=== PATIENT | male | born 1960 | race Caucasian/White ===

== ENCOUNTER 2023-10-15 22:14 | Outpatient (CLI) | payer OTHER, SELFPAY | END 2023-10-15 22:15 | disposition home or self-care (01) | LOC: AMB 10-19 19:45 | PROVIDERS: Visit Provider Family Medicine | DX: R53.1 Weakness (principal); F10.129 Alcohol abuse with intoxication, unspecified | CPT/HCPCS: A0998 ==

== ENCOUNTER 2024-07-01 23:05 | Outpatient (CLI) | payer MEDICAID, SELFPAY | END 2024-07-01 23:06 | disposition home or self-care (01) | LOC: AMB 07-04 09:44 | PROVIDERS: Visit Provider Internal Medicine | DX: R53.1 Weakness (principal) | CPT/HCPCS: A0998 ==

== ENCOUNTER 2024-07-05 03:00 | Outpatient (CLI) | payer MEDICAID, SELFPAY | END 2024-07-05 03:01 | disposition home or self-care (01) | LOC: AMB 07-07 08:14 | PROVIDERS: Visit Provider Family Medicine | DX: R53.1 Weakness (principal) ==

== ENCOUNTER 2024-10-17 19:28 | Outpatient (CLI) | payer OTHER, SELFPAY | END 2024-10-17 19:29 | disposition home or self-care (01) | PROVIDERS: Visit Provider Emergency Medicine | DX: S09.90XA Unspecified injury of head, initial encounter (principal); W07.XXXA Fall from chair, initial encounter; Y92.039 Unspecified place in apartment as the place of occurrence of the external cause | CPT/HCPCS: A0425; A0427 ==

== ENCOUNTER 2024-10-17 19:49 | Emergency (ER) | payer OTHER, SELFPAY ==
[2024-10-17] VITALS (19 sets, daily range): BP systolic 91–136; BP diastolic 51–79; PULSE 72–105; RESP 12–26; TEMP 35.1; O2SAT 90–95; BMI 40.7
--- NOTE | 2024-10-17 19:56 | CRLHL7_ITS ---
For Patients: As a result of the Century Cures Act, medical imaging exams and procedure reports are released immediately into your electronic medical record. You may view this report before your referring provider. If you have questions, please contact your health care provider. INDICATION: ETOH, fell onto table, multiple lacerations. TECHNIQUE: CT head without contrast. COMPARISON: None. FINDINGS: CSF spaces: Within normal limits for age. Brain parenchyma and extra-axial spaces: Mild generalized volume loss consistent with physiologic aging. No sign of mass, hemorrhage, or midline shift. No extra-axial fluid collection. Skull base and calvarium: Mild paranasal sinus mucosal thickening. Mastoids are clear. The visualized orbits are grossly unremarkable. Left frontal and right posterior superficial soft tissue swelling, but no underlying fracture. IMPRESSION: No acute intracranial abnormality. No acute fracture Please note that all CT scans at this facility use dose modulation, iterative reconstruction, and/or weight-based dosing when appropriate to reduce radiation dose to as low as reasonably achievable. Dictated by Raffi Aranda MD @ 10/17/2024 8:32:21 PM (Electronically Signed)
--- NOTE | 2024-10-17 19:56 | CRLHL7_ITS ---
For Patients: As a result of the Cures Act, medical imaging exams and procedure reports are released immediately into your electronic medical record. You may view this report before your referring provider. If you have questions, please contact your health care provider. INDICATION: Trauma. TECHNIQUE: CT cervical spine without contrast. COMPARISON: None. FINDINGS: Vertebrae: Alignment is unremarkable. No definite acute fracture. Discs and facet joints: Multilevel degenerative changes. Extraspinal findings: Prevertebral soft tissues, visualized airway, and visualized lungs are unremarkable. IMPRESSION: No definite acute fracture or dislocation. Please note that all CT scans at this facility use dose modulation, iterative reconstruction, and/or weight-based dosing when appropriate to reduce radiation dose to as low as reasonably achievable. Dictated by Raffi Aranda MD @ 10/17/2024 8:36:00 PM (Electronically Signed)
[2024-10-17 20:07] LABS: Hematocrit 46.9 % (37.0-53.0); Hemoglobin* 15.6 gm/dL (13.5-17.5); Immature Granulocytes Pct Auto 0.3 %; Mean Corpuscular HGB Conc 33 gm/dL (32-36); Mean Corpuscular Hemoglobin 33 pg (26-34); Mean Corpuscular Volume 99 fL (80-100); RDW Coefficient of Variation % 15.9 % (11.5-15.5); Red Blood Count 4.72 m/uL (4.30-5.90); White Blood Count* 11.74 K/uL (4.50-11.00)
[2024-10-17 20:13] LABS: Immature Granulocytes Abs Auto 0.00 K/uL (0.00-0.30); Lymphocytes Absolute Auto 2.10 K/uL (0.90-2.90); Slide Review Reflex No
--- NOTE | 2024-10-17 20:16 | ED.GENADULT ---
HPI - General Adult General Date Seen: 10/17/24 <Helen Watson MD - Last Filed: 10/23/24 20:24> Chief complaint: Fall/Minor Trauma <Helen Watson MD - Last Filed: 10/23/24 20:24> Stated complaint: fall <Helen Watson MD - Last Filed: 10/23/24 20:24> Time Seen by Provider: 10/17/24 19:54 <Helen Watson MD - Last Filed: 10/23/24 20:24> History of Present Illness HPI narrative: Patient is a 64-year-old here by EMS after fall at home. He was apparently getting out of his lift chair when he fell forward and hit his head on a table. He is intoxicated. There was no reported loss of consciousness. He is very pleasant and cooperative. He notes a little bit of pain in his neck when asked, denies significant head pain. Denies chest or abdominal, back pain. Does note prior fractures of his neck and back as well as coronary artery disease status post CABG and stenting. Denies any chest pain or difficulty breathing. Denies passing out, he says he just thinks he fell. He is on Plavix, medics reported minimal amount of blood on scene. He does have a cut on his forehead. <Helen Watson MD - Last Filed: 10/23/24 20:24> Related Data Home medications: Home Medications ?Medication ?Instructions ?Recorded ?Confirmed aspirin 81 mg chewable tablet 1 tab PO DAILY 10/08/23 10/08/23 clopidogrel 75 mg tablet 75 mg PO DAILY 10/08/23 10/08/23 dapagliflozin propanediol 10 mg 10 mg PO DAILY 10/08/23 10/08/23 tablet (Farxiga) ezetimibe 10 mg tablet 10 mg PO DAILY 10/08/23 10/08/23 finasteride 5 mg tablet 5 mg PO DAILY 10/08/23 10/08/23 furosemide 20 mg tablet mg PO 10/08/23 10/08/23 metoprolol succinate 25 mg 25 mg PO DAILY 10/08/23 10/08/23 tablet,extended release 24 hr pregabalin 50 mg capsule 50 mg PO BID 10/08/23 10/08/23 sacubitril 97 mg-valsartan 103 mg 1 tab PO BID 10/08/23 10/08/23 tablet (Entresto) spironolactone 25 mg tablet 25 mg PO DAILY 10/08/23 10/08/23 venlafaxine 37.5 mg 37.5 mg PO DAILY 10/08/23 10/08/23 capsule,extended release 24 hr <Helen Watson MD - Last Filed: 10/23/24 20:24> Allergies/adverse reactions: Allergies Allergy/AdvReac Type Severity Reaction Status Date / Time No Known Drug Allergies Allergy Verified 10/08/23 12:14 <Helen Watson MD - Last Filed: 10/23/24 20:24> Review of Systems Status of ROS: Reports: 10 or more systems reviewed and unremarkable except as noted in History and below <Helen Watson MD - Last Filed: 10/23/24 20:24> PFSH ON LICENSE OF [facility] Social History: Social History Smoking Status: Unknown if ever smoked Do you use any of these nicotine containing products: None Second hand tobacco smoke exposure: No How often do you have a drink containing alcohol: 4 or more times a week How many standard drinks containing alcohol do you have on a typical day: 10 or more How often do you have six or more drinks on one occasion: Daily or almost daily AUDIT-C Alcohol total score: 12 Non-prescribed substance use: denies use service: No <Helen Watson MD - Last Filed: 10/23/24 20:24> Exam Narrative: Exam Narrative: Primary survey: Airway: Patent. Breathing: Nonlabored. Lungs clear. Circulation: Pulses intact. No external bleeding. Disability: GCS 15. Secondary survey: Vital signs reviewed In general, an alert, nontoxic elderly male. Head: Normocephalic. There is a 2 cm laceration on his right forehead. Bleeding is controlled at this time. Eyes: Pupils are equal reactive. Extraocular movements full. ENT: No facial trauma. Dentition intact. Neck: Cervical collar in place. No midline cervical tenderness. No anterior neck trauma. Chest: No visible signs of chest trauma. No tenderness to palpation. Heart regular rate and rhythm. Lungs clear bilaterally. Abdomen: No visible signs of trauma. Soft, nondistended, nontender to palpation. Back: No visible signs of trauma. Nontender to palpation. Pelvis: Stable, nontender. Extremities: He has old scabs on both knees, the right 1 is broken open and there is a little bit of venous oozing. No bony tenderness. He has full range of motion of both hips and both knees, no tenderness palpation of bilateral lower extremities. Upper extremities are notable for an old bruise on his right shoulder, he is not sure how he got that. He is moving both upper extremities without difficulty, no tenderness, deformity or other evidence of trauma. Neurologic: Alert, conversant, moves all extremities to command. Skin: Warm and dry. <Helen Watson MD - Last Filed: 10/23/24 20:24> Const: Vital Signs, click to edit/add: Vital Signs - 24 hr 10/17/24 19:49 10/17/24 19:49 10/17/24 20:06 Temperature 95.1 F L Pulse Rate Pulse Rate [Left P ulse Oximeter] 105 H Respiratory Rate 20 Blood Pressure 101/60 Blood Pressure [Le ft Upper Arm] 91/63 Pulse Oximetry 94 94 Oxygen Delivery Me thod Room Air 10/17/24 20:15 10/17/24 20:16 10/17/24 20:20 Temperature Pulse Rate 85 75 Pulse Rate [Left P ulse Oximeter] Respiratory Rate 17 15 15 Blood Pressure 115/65 Blood Pressure [Le ft Upper Arm] Pulse Oximetry 94 92 Oxygen Delivery Me thod 10/17/24 20:24 10/17/24 20:30 10/17/24 20:34 Temperature Pulse Rate 72 72 72 Pulse Rate [Left P ulse Oximeter] Respiratory Rate 16 13 16 Blood Pressure 108/55 L 102/58 L Blood Pressure [Le ft Upper Arm] Pulse Oximetry 95 94 91 Oxygen Delivery Me thod 10/17/24 20:40 10/17/24 20:43 10/17/24 20:50 Temperature Pulse Rate 76 78 72 Pulse Rate [Left P ulse Oximeter] Respiratory Rate 16 12 13 Blood Pressure 101/62 Blood Pressure [Le ft Upper Arm] Pulse Oximetry 90 93 94 Oxygen Delivery Me thod 10/17/24 20:53 10/17/24 21:00 10/17/24 21:03 Temperature Pulse Rate 72 75 80 Pulse Rate [Left P ulse Oximeter] Respiratory Rate 16 15 23 Blood Pressure 102/51 L 101/59 L Blood Pressure [Le ft Upper Arm] Pulse Oximetry 92 93 92 Oxygen Delivery Me thod 10/17/24 21:10 10/17/24 21:13 10/17/24 21:20 Temperature Pulse Rate 75 76 81 Pulse Rate [Left P ulse Oximeter] Respiratory Rate 14 17 24 Blood Pressure 109/67 Blood Pressure [Le ft Upper Arm] Pulse Oximetry 93 93 Oxygen Delivery Me thod 10/17/24 21:24 10/17/24 21:30 10/18/24 03:51 Temperature Pulse Rate 68 Pulse Rate [Left P ulse Oximeter] Respiratory Rate 26 H 16 20 Blood Pressure 136/79 Blood Pressure [Le ft Upper Arm] Pulse Oximetry 93 Oxygen Delivery Me thod 10/18/24 04:01 10/18/24 05:01 10/18/24 06:02 Temperature Pulse Rate 70 67 73 Pulse Rate [Left P ulse Oximeter] Respiratory Rate 21 20 Blood Pressure 130/70 124/74 118/76 Blood Pressure [Le ft Upper Arm] Pulse Oximetry 92 92 97 Oxygen Delivery Me thod <Helen Watson MD - Last Filed: 10/23/24 20:24> Vital Signs, click to edit/add: Vital Signs - 24 hr 10/17/24 19:49 10/17/24 19:49 10/17/24 20:06 Temperature 95.1 F L Pulse Rate Pulse Rate [Left P ulse Oximeter] 105 H Respiratory Rate 20 Blood Pressure 101/60 Blood Pressure [Le ft Upper Arm] 91/63 Pulse Oximetry 94 94 Oxygen Delivery Me thod Room Air 10/17/24 20:15 10/17/24 20:16 10/17/24 20:20 Temperature Pulse Rate 85 75 Pulse Rate [Left P ulse Oximeter] Respiratory Rate 17 15 15 Blood Pressure 115/65 Blood Pressure [Le ft Upper Arm] Pulse Oximetry 94 92 Oxygen Delivery Me thod 10/17/24 20:24 10/17/24 20:30 10/17/24 20:34 Temperature Pulse Rate 72 72 72 Pulse Rate [Left P ulse Oximeter] Respiratory Rate 16 13 16 Blood Pressure 108/55 L 102/58 L Blood Pressure [Le ft Upper Arm] Pulse Oximetry 95 94 91 Oxygen Delivery Me thod 10/17/24 20:40 10/17/24 20:43 10/17/24 20:50 Temperature Pulse Rate 76 78 72 Pulse Rate [Left P ulse Oximeter] Respiratory Rate 16 12 13 Blood Pressure 101/62 Blood Pressure [Le ft Upper Arm] Pulse Oximetry 90 93 94 Oxygen Delivery Me thod 10/17/24 20:53 10/17/24 21:00 10/17/24 21:03 Temperature Pulse Rate 72 75 80 Pulse Rate [Left P ulse Oximeter] Respiratory Rate 16 15 23 Blood Pressure 102/51 L 101/59 L Blood Pressure [Le ft Upper Arm] Pulse Oximetry 92 93 92 Oxygen Delivery Me thod 10/17/24 21:10 10/17/24 21:13 10/17/24 21:20 Temperature Pulse Rate 75 76 81 Pulse Rate [Left P ulse Oximeter] Respiratory Rate 14 17 24 Blood Pressure 109/67 Blood Pressure [Le ft Upper Arm] Pulse Oximetry 93 93 Oxygen Delivery Me thod 10/17/24 21:24 10/17/24 21:30 10/18/24 03:51 Temperature Pulse Rate 68 Pulse Rate [Left P ulse Oximeter] Respiratory Rate 26 H 16 20 Blood Pressure 136/79 Blood Pressure [Le ft Upper Arm] Pulse Oximetry 93 Oxygen Delivery Me thod 10/18/24 04:01 10/18/24 05:01 10/18/24 06:02 Temperature Pulse Rate 70 67 73 Pulse Rate [Left P ulse Oximeter] Respiratory Rate 21 20 Blood Pressure 130/70 124/74 118/76 Blood Pressure [Le ft Upper Arm] Pulse Oximetry 92 92 97 Oxygen Delivery Nj thod <Phyllis Burgos MD - Last Filed: 10/18/24 07:03> Course Course ED Course: Medics had an IV in place, will give a L of normal saline to start. Baseline blood pressures are not known, he is running borderline low here in the low 90s over 60s. Mildly tachycardic with pulse in the low 100s. No evidence of severe trauma or injury based on initial exam, no reported significant blood loss and no visible ongoing bleeding. Will do CT scans of the head and cervical spine to start. Labs pending. I reviewed the CT scan of his head, no acute findings such as hemorrhage. Read as negative by Radiology aside from soft tissue swelling. CT scan of the cervical spine read by Radiology as negative. Patient's blood pressure and pulse improved with fluids, 136/79 and a pulse of 81 at last documentation. His labs are notable for blood alcohol of 0.25. White count is 11.7, hemoglobin 15.6. His CO2 is 19 but otherwise the remainder of his labs are entirely normal. Regarding the cut on his forehead, I anesthetized this and then cleaned it, it is actually much more superficial than I suspected. Patient requested no stitches of possible, and I do think glue is reasonable given the superficial nature of the wound. After cleaning, I close this with Dermabond which he tolerated well. Patient was seen here in late evening, with his blood alcohol and the fact that he lives alone, I did not feel was appropriate to discharge him immediately. He does not have friends or family who can either pick him up from hospital or stay with him tonight, so he will likely be with us overnight, home in the morning. He has not been up and walking yet, but did not have other complaints at the time of my interaction with him. <Helen Watson MD - Last Filed: 10/23/24 20:24> Reevaluation(s) Time of Reevaluation #1: 06:27 <Phyllis Burgos MD - Last Filed: 10/18/24 07:03> Reevaluation #1: Dr. Burgos- patient has remained stable, friendly and cooperative overnight. No behavioral issues or unstable vitals. Has remained neurologically stable. Observed ambulating around stable to, Recommend home discharge now that he seems sober. Discharge instructions provided in writing. <Phyllis Burgos MD - Last Filed: 10/18/24 07:03> Vital Signs Vital signs: Initial Vital Signs Temperature 95.1 F L 10/17/24 19:49 Temperature Source Temporal Artery Scan 10/17/24 19:49 Pulse Rate 105 H 10/17/24 19:49 Respiratory Rate 20 10/17/24 19:49 Blood Pressure 91/63 10/17/24 19:49 Blood Pressure Mean 72 10/17/24 19:49 Blood Pressure Position Semi-Fowlers 10/17/24 19:49 Pulse Oximetry 94 10/17/24 19:49 Oxygen Delivery Method Room Air 10/17/24 19:49 Vital Signs Temperature 95.1 F L 10/17/24 19:49 Pulse Rate 105 H 10/17/24 19:49 Respiratory Rate 20 10/17/24 19:49 Blood Pressure 91/63 10/17/24 19:49 Pulse Oximetry 94 10/17/24 19:49 Oxygen Delivery Method Room Air 10/17/24 19:49 Temperature 95.1 F L 10/17/24 19:49 Pulse Rate 73 10/18/24 06:02 Respiratory Rate 20 10/18/24 06:02 Blood Pressure 118/76 10/18/24 06:02 Pulse Oximetry 97 10/18/24 06:02 Oxygen Delivery Method Room Air 10/17/24 19:49 <Helen Watson MD - Last Filed: 10/23/24 20:24> Initial Vital Signs Temperature 95.1 F L 10/17/24 19:49 Temperature Source Temporal Artery Scan 10/17/24 19:49 Pulse Rate 105 H 10/17/24 19:49 Respiratory Rate 20 10/17/24 19:49 Blood Pressure 91/63 10/17/24 19:49 Blood Pressure Mean 72 10/17/24 19:49 Blood Pressure Position Semi-Fowlers 10/17/24 19:49 Pulse Oximetry 94 10/17/24 19:49 Oxygen Delivery Method Room Air 10/17/24 19:49 Vital Signs Temperature 95.1 F L 10/17/24 19:49 Pulse Rate 105 H 10/17/24 19:49 Respiratory Rate 20 10/17/24 19:49 Blood Pressure 91/63 10/17/24 19:49 Pulse Oximetry 94 10/17/24 19:49 Oxygen Delivery Method Room Air 10/17/24 19:49 Temperature 95.1 F L 10/17/24 19:49 Pulse Rate 73 10/18/24 06:02 Respiratory Rate 20 10/18/24 06:02 Blood Pressure 118/76 10/18/24 06:02 Pulse Oximetry 97 10/18/24 06:02 Oxygen Delivery Method Room Air 10/17/24 19:49 <Phyllis Burgos MD - Last Filed: 10/18/24 07:03> Medications Administered Medications: Discontinued Medications Generic Name Dose Route Start Last Admin Trade Name Freq PRN Reason Stop Dose Admin Sodium Chloride 1,000 mls @ 1,000 mls/hr 10/17/24 20:00 10/17/24 20:28 0.9 % Sodium Chloride 1000 Ml IV 10/17/24 20:59 1,000 mls/hr .Q1H ILIA Administration Lidocaine/Epinephrine 3 ml 10/17/24 20:39 10/17/24 20:46 Lidocaine 1%-Epi 1:100,000 INFILTRATI 10/17/24 20:40 3 ml ONCE ONE Administration <Helen Watson MD - Last Filed: 10/23/24 20:24> Discontinued Medications Generic Name Dose Route Start Last Admin Trade Name Freq PRN Reason Stop Dose Admin Sodium Chloride 1,000 mls @ 1,000 mls/hr 10/17/24 20:00 10/17/24 20:28 0.9 % Sodium Chloride 1000 Ml IV 10/17/24 20:59 1,000 mls/hr .Q1H ILIA Administration Lidocaine/Epinephrine 3 ml 10/17/24 20:39 10/17/24 20:46 Lidocaine 1%-Epi 1:100,000 INFILTRATI 10/17/24 20:40 3 ml ONCE ONE Administration <Phyllis Burgos MD - Last Filed: 10/18/24 07:03> Medical Decision Making Lab Data Lab results reviewed: Yes I reviewed the patient's lab results <Phyllis Burgos MD - Last Filed: 10/18/24 07:03> Lab results narrative: Labs reassuring other than blood alcohol level 3 times the legal limit. <Phyllis Burgos MD - Last Filed: 10/18/24 07:03> Labs: Lab Results 10/17/24 Range/Units 19:55 WBC 11.74 H (4.50-11.00) K/uL RBC 4.72 (4.30-5.90) m/uL Hgb 15.6 (13.5-17.5) gm/dL Hct 46.9 (37.0-53.0) % MCV 99 (80-100) fL MCH 33 (26-34) pg MCHC 33 (32-36) gm/dL RDW Coeff of Dwain 15.9 H (11.5-15.5) % Plt Count 190 (140-440) K/uL Neut % (Auto) 70.7 (42.0-72.0) % Lymph % (Auto) 17.8 L (20-44) % [place] % (Auto) 9.6 (0.0-11.0) % Eos % (Auto) 1.4 (0.0-7.0) % Baso % (Auto) 0.2 (0.0-3.0) % Neut # (Auto) 8.30 H (1.7-7.0) K/uL Lymph # (Auto) 2.10 (0.90-2.90) K/uL [place] # (Auto) 1.10 H (0.00-0.90) K/UL Eos # (Auto) 0.20 (0.00-0.50) K/uL Baso # (Auto) 0.00 (0.00-0.30) K/uL Abs Immat Gran (auto) 0.00 (0.00-0.30) K/uL Imm/Tot Granulo (auto) 0.3 % INR 0.99 (0.91-1.10) Sodium 137 (135-149) mmol/L Potassium 4.2 (3.6-5.1) mmol/L Chloride 105 (96-114) mmol/L Carbon Dioxide 19 L (20-32) mmol/L Anion Gap 13 (7-15) mEq/L BUN 33 H (7-30) mg/dL Creatinine 1.3 (0.5-1.5) mg/dL Estimated Creat Clear 63.84 Estimated GFR 62 ml/min Glucose 94 (60-115) mg/dL Calcium 8.9 (8.4-10.6) mg/dL Magnesium 2.3 (1.5-2.6) mg/dL Total Bilirubin 0.5 (0.1-1.5) mg/dL Direct Bilirubin 0.1 (0.0-0.5) mg/dL AST 32 (12-35) U/L ALT 30 (4-50) U/L Alkaline Phosphatase 79 (40-150) U/L Total Protein 6.9 (6.0-8.3) g/dL Albumin 4.0 (3.3-5.0) g/dL Ethyl Alcohol 0.25 H (0.01-0.03) % <Helen Watson MD - Last Filed: 10/23/24 20:24> Lab Results 10/17/24 Range/Units 19:55 WBC 11.74 H (4.50-11.00) K/uL RBC 4.72 (4.30-5.90) m/uL Hgb 15.6 (13.5-17.5) gm/dL Hct 46.9 (37.0-53.0) % MCV 99 (80-100) fL MCH 33 (26-34) pg MCHC 33 (32-36) gm/dL RDW Coeff of Dwain 15.9 H (11.5-15.5) % Plt Count 190 (140-440) K/uL Neut % (Auto) 70.7 (42.0-72.0) % Lymph % (Auto) 17.8 L (20-44) % [place] % (Auto) 9.6 (0.0-11.0) % Eos % (Auto) 1.4 (0.0-7.0) % Baso % (Auto) 0.2 (0.0-3.0) % Neut # (Auto) 8.30 H (1.7-7.0) K/uL Lymph # (Auto) 2.10 (0.90-2.90) K/uL [place] # (Auto) 1.10 H (0.00-0.90) K/UL Eos # (Auto) 0.20 (0.00-0.50) K/uL Baso # (Auto) 0.00 (0.00-0.30) K/uL Abs Immat Gran (auto) 0.00 (0.00-0.30) K/uL Imm/Tot Granulo (auto) 0.3 % INR 0.99 (0.91-1.10) Sodium 137 (135-149) mmol/L Potassium 4.2 (3.6-5.1) mmol/L Chloride 105 (96-114) mmol/L Carbon Dioxide 19 L (20-32) mmol/L Anion Gap 13 (7-15) mEq/L BUN 33 H (7-30) mg/dL Creatinine 1.3 (0.5-1.5) mg/dL Estimated Creat Clear 63.84 Estimated GFR 62 ml/min Glucose 94 (60-115) mg/dL Calcium 8.9 (8.4-10.6) mg/dL Magnesium 2.3 (1.5-2.6) mg/dL Total Bilirubin 0.5 (0.1-1.5) mg/dL Direct Bilirubin 0.1 (0.0-0.5) mg/dL AST 32 (12-35) U/L ALT 30 (4-50) U/L Alkaline Phosphatase 79 (40-150) U/L Total Protein 6.9 (6.0-8.3) g/dL Albumin 4.0 (3.3-5.0) g/dL Ethyl Alcohol 0.25 H (0.01-0.03) % <Phyllis Burgos MD - Last Filed: 10/18/24 07:03> Discharge Plan Discharge Clinical Impression: Acute alcohol intoxication, Accident due to mechanical fall without injury <Helen Watson MD - Last Filed: 10/23/24 20:24> Patient Disposition: Home w/ Parent or Adult <Helen Watson MD - Last Filed: 10/23/24 20:24> Condition: Improved <Helen Watson MD - Last Filed: 10/23/24 20:24> Instructions: Head Injury (ED), At-Risk Alcohol Use (ED), Skin Adhesive Care (ED) <Helen Watson MD - Last Filed: 10/23/24 20:24> Additional Instructions: Thankfully, there were no signs of serious injury related to her fall. I do think this was related to excessive drinking of alcohol. Even at the time of arrival to the emergency department, your blood levels were 3 times the legal limit. Your alcohol use is problematic and I do strongly recommend that you discontinue this completely. If you have persistent symptoms, please have them re-evaluated with her primary care provider. Any emergent type symptoms should be re-evaluated in the emergency department. Continue the remainder of your medications as prescribed. <Helen Watson MD - Last Filed: 10/23/24 20:24> Activity Level: No Restrictions <Helen Watson MD - Last Filed: 10/23/24 20:24> No Restrictions <Phyllis Burgos MD - Last Filed: 10/18/24 07:03> Discharge Diet: Regular <Helen Watson MD - Last Filed: 10/23/24 20:24> Regular <Phyllis Burgos MD - Last Filed: 10/18/24 07:03> Prescriptions: No Action Entresto 97-103 mg tablet 1 tab PO BID pregabalin 50 mg capsule 50 mg PO BID dapagliflozin propanediol [Farxiga] 10 mg tablet 10 mg PO DAILY ezetimibe 10 mg tablet 10 mg PO DAILY furosemide 20 mg tablet PO aspirin 81 mg tablet,chewable 1 tab PO DAILY spironolactone 25 mg tablet 25 mg PO DAILY clopidogrel 75 mg tablet 75 mg PO DAILY finasteride 5 mg tablet 5 mg PO DAILY metoprolol succinate 25 mg tablet extended release 24 hr 25 mg PO DAILY venlafaxine 37.5 mg capsule,extended release 24hr 37.5 mg PO DAILY <Helen Watson MD - Last Filed: 10/23/24 20:24> Follow Up/Referrals: Provider,Not a Local [Primary Care Provider, Family Practice] <Helen Watson MD - Last Filed: 10/23/24 20:24> Stand Alone Forms: MyHealth Info Instructions <Helen Watson MD - Last Filed: 10/23/24 20:24>
[2024-10-17 20:23] LABS: Albumin* 4.0 g/dL (3.3-5.0); Chloride* 105 mmol/L (96-114); Sodium* 137 mmol/L (135-149)
--- OUTSIDE RECORDS SUMMARY | 2024-10-17 20:23 | XMS_ITS ---
Author Organization [facility] Care Team Providers Care Castings Drafter Name Role Phone Shemar Chatterjee Unavailable Unavailable Allergies and adverse reactions No Known Allergies Care Team Name Role Address Phone Organization Dates Shemar Chatterjee PCP [facility] [address] [place], [address], [place] (Office): : [facility] 01/09/2023 - 09/17/2023 Immunizations Immunization Status Vaccine Details Vaccine Code CodeSystem Date Notes Hepatitis B completed hepatitis B vaccine, adult dosage 43 CVX created date: 01/08/2023 administer ed date: 02/20/2022 TB 2 Step Mantoux Skin Test completed tuberculin skin test; unspecified formulation lotNumber: [id number] expiry: 02/20/2026 Mfg: NDC Given 0.1 ml Left Forearm intradermally Step 1 of Multi-step 98 CVX created date: 01/23/2023 consent date: 01/23/2023 administer ed date: 01/23/2023 TB 2 Step Mantoux Skin Test completed tuberculin skin test; unspecified formulation lotNumber: [id number] expiry: 01/11/2023 Mfg: Par Pharmacetical Given 0.1 ml Left Forearm intradermally Step 1 of Multi-step 98 CVX created date: 01/10/2023 consent date: 01/09/2023 administer ed date: 01/10/2023 Tdap completed tetanus toxoid, reduced diphtheria toxoid, and acellular pertussis vaccine, adsorbed 115 CVX created date: 01/08/2023 administer ed date: 05/01/2021 Td: Tetanus/Diphthe sunshine completed tetanus and diphtheria toxoids, adsorbed, preservative free, for adult use (2 Lf of tetanus toxoid and 2 Lf of diphtheria toxoid) 09 CVX created date: 01/08/2023 administer ed date: 06/14/1995 Quadrivalent flu vaccine completed Influenza, split virus, quadrivalent, injectable, contains preservative lotNumber: [id number] expiry: 09/20/2023 Mfg: GlaxoSmithKline Given 0.5 ml Left Deltoid intramuscularly 158 CVX created date: 01/09/2023 consent date: 01/09/2023 administer ed date: 01/09/2023 Educated by Phi Romo RN on 01/09/2023 Quadrivalent flu vaccine completed Influenza, split virus, quadrivalent, injectable, contains preservative 158 CVX created date: 01/08/2023 administer ed date: 01/16/2022 Pneumococcal 23 completed pneumococcal polysaccharide vaccine, 23 valent 33 CVX created date: 01/08/2023 administer ed date: 12/02/2018 Zostavax Herpes Zoster vaccination completed zoster vaccine, live 121 CVX created date: 01/08/2023 administer ed date: 05/01/2021 Measles Mumps and rubella (MMR) vaccine completed measles, mumps and rubella virus vaccine 03 CVX created date: 01/08/2023 administer ed date: 11/22/2021 SARS-COV-2 (COVID-19) completed SARS-COV-2 (COVID-19) vaccine, mRNA, spike protein, LNP, preservative free, 30 mcg/0.3mL dose Mfg: Comirnaty-PFR Given 30.0 mcg Step 2 of Multi-step with next step required 208 CVX created date: 01/08/2023 administer ed date: 07/10/2020 SARS-COV-2 (COVID-19) completed SARS-COV-2 (COVID-19) vaccine, mRNA, spike protein, LNP, preservative free, 30 mcg/0.3mL dose Mfg: Comirnaty-PFR Given 30.0 mcg Step 1 of Multi-step with next step required 208 CVX created date: 01/08/2023 administer ed date: 06/19/2020 Booster Vaccine Pfizer completed SARS-COV-2 (COVID-19) vaccine, mRNA, spike protein, LNP, preservative free, 30 mcg/0.3mL dose Mfg: Comirnaty-PFR Given 30.0 mcg 208 CVX created date: 01/08/2023 administer ed date: 01/26/2021 Prevnar 20 completed Pneumococcal conjugate vaccine 20-valent (PCV20), polysaccharide [id number] conjugate, adjuvant, preservative free lotNumber: [id number] expiry: 08/20/2024 Mfg: PFIZER Given 0.5 ml Left Deltoid intramuscularly 216 CVX created date: 05/22/2023 consent date: 05/22/2023 administer ed date: 07/01/2023 Educated by Yanely TAI 08/01/22 on 05/14/2023 2nd Booster [facility] completed SARS-COV-2 (COVID-19) vaccine, mRNA, spike protein, LNP, preservative free, 30 mcg/0.3mL dose Mfg: Comirnaty-PFR Given 30.0 mcg 208 CVX created date: 01/08/2023 administer ed date: 07/11/2021 Covid Bivalent Booster(Pfizer) completed SARS-COV-2 (COVID-19) vaccine, mRNA, spike protein, LNP, bivalent, preservative free, 30 mcg/0.3 mL dose, anahi-sucrose formulation Mfg: Comirnaty-PFR Given 30.0 mcg 300 CVX created date: 01/08/2023 administer ed date: 01/16/2022 Lakeshia Covid [id number] Formula completed SARS-COV-2 (COVID-19) vaccine, mRNA, spike protein, LNP, preservative free, 50 mcg/0.5 mL dose lotNumber: [id number] expiry: 02/03/2023 Mfg: Moderna Given 0.5 ml Left Deltoid intramuscularly 312 CVX created date: 01/12/2023 consent date: 01/12/2023 administer ed date: 01/12/2023 Educated by Yanely Hanson RN on 01/12/2023 Mental Status Section Date Assessment Total Score Description 09/17/2023 BIMS 15 cognitively int act CAM 0 No delirium ind icated PHQ-9 00 08/04/2023 BIMS 15 cognitively int act CAM 0 No delirium ind icated PHQ-9 00 Problems Problem # Description Date of onset Resolved Date Code CodeSystem Concern Status 1 DIARRHEA, UNSPECIFIED 02/18/[address] active 2 ANKYLOSING HYPEROSTOSIS [FORESTIER], SITE UNSPECIFIED 01/10/[address] active 3 BODY MASS INDEX [BMI]40.0-44.9, ADULT 01/10/[address] active 4 CERVICALGIA 01/10/[address] active 5 CHEST PAIN, UNSPECIFIED 01/10/[address] active 6 CHRONIC SYSTOLIC (CONGESTIVE) HEART FAILURE 01/10/[address] active 7 HYPERLIPIDEMIA, UNSPECIFIED 01/10/[address] active 8 HYPERTENSIVE HEART DISEASE WITH HEART FAILURE 01/10/[address] active 9 ISCHEMIC CARDIOMYOPATHY 01/10/[address] active 10 MCC (CURRENT) USE OF ANTITHROMBOTICS/A NTIPLATELETS 01/10/[address] active 11 TRUCK DISPATCHER (CURRENT) USE OF ASPIRIN 01/10/[address] active 12 MAJOR DEPRESSIVE DISORDER, RECURRENT, MILD 01/10/[address] active 13 MILD PROTEIN-CALORIE MALNUTRITION 01/10/2005/06/[address] completed 14 MORBID (SEVERE) OBESITY DUE TO EXCESS CALORIES 01/10/[address] active 15 MUSCLE WEAKNESS (GENERALIZED) 01/10/[address] active 16 NON-ST ELEVATION (NSTEMI) MYOCARDIAL INFARCTION 01/10/[address] active 17 OBSTRUCTIVE SLEEP APNEA (ADULT) (PEDIATRIC) 01/10/[address] active 18 OLD MYOCARDIAL INFARCTION 01/10/[address] active 19 PERSONAL HISTORY OF NICOTINE DEPENDENCE 01/10/[address] active 20 PREDIABETES 01/10/[address] active 21 PRESENCE OF AORTOCORONARY BYPASS GRAFT 01/10/[address] active 22 PRESENCE OF CORONARY ANGIOPLASTY IMPLANT AND GRAFT 01/10/[address] active 23 PRIMARY OSTEOARTHRITIS, LEFT SHOULDER 01/10/202017604019030 SNOMED CT active 24 PRIMARY OSTEOARTHRITIS, RIGHT SHOULDER 01/10/202017829906341 SNOMED CT active 25 UNSPECIFIED NONDISPLACED FRACTURE OF SEVENTH CERVICAL VERTEBRA, SUBSEQUENT ENCOUNTER FOR FRACTURE WITH ROUTINE HEALING 01/10/[address] active 26 UNSTABLE BURST FRACTURE OF FIRST LUMBAR VERTEBRA, SUBSEQUENT ENCOUNTER FOR FRACTURE WITH ROUTINE HEALING 01/10/[address] active 27 VERTEBROGENIC LOW BACK PAIN 01/10/[address] active Reason for Referral No Reasons for Referral Entered Social History Social History Observation Description Start Date End Date Code Code System Current Smoking Status Tobacco smoking consumption unknown 635376722 SNOMED CT Sex Assigned At Male 1960 42964-9 [facility] Gender Identity Vital Signs Code Code System Vitals Name Values and Units Timing Information 8462-4 [facility] Blood Pressure-Diastolic Value=75 Un its=mmHg 09/17/2023 8480-6 [facility] Blood Pressure-Systolic Elmyf=890 Un its=mmHg 09/17/2023 8867-4 [facility] Heart rate Value=93.0 Units=/min 39906-0 [facility] Pain Level Value=5.0 09/17/2023 9279-1 [facility] Respiratory Rate Value=18.0 Units=/m in 09/12/2023 58963-7 [facility] O2 % BldC Oximetry Value=97.0 Units= % 09/12/2023 44257-8 [facility] Weight Stvys=553.4 Units=Lbs 8310-5 [facility] Body Temperature Value=98.1 Units= F 08/29/2023 8302-2 [facility] Height Value=72.0 Units=Inches 01/10/2023
--- OUTSIDE RECORDS SUMMARY | 2024-10-17 20:23 | XMS_ITS | Clinical Summary ---
Author Organization [facility] Address [address] [place] [address] Care Team Providers Care Textiles Sales Representative Name Role Phone Hayden Landry Primary Care Provider Unavailabl e Allergies No known active allergies Medications DULoxetine (CYMBALTA) 30 mg Delayed-release capsule Take 30 mg by mouth 2 times daily. 0 09/19/19 15 Active acetaminophen (TYLENOL EXTRA STRENGTH) 500 mg tablet Take 2 tablets by mouth every 6 hours if needed. Max acetaminophen dose: 4000mg in 24 hrs. 0 09/19/19 15 Active lisinopril-hydro chlorothiazide (10-12.5 mg) tablet (PRINZIDE; ZESTORETIC) Take 1 tablet by mouth once daily. Active WalkerIndication s:S/P total hip arthroplasty 2 Wheeled Walker for home use. 1 Device 0 09/22/19 15 Active glucosamine-eneida droitin, 500-400 mg, (COSAMIN DS 500/400) 500-400 mg cap Take 1 capsule by mouth once daily. Active sennosides-docus ate, 8.6-50 mg, (SENOKOT-S) 8.6-50 mg tabletIndication s:S/P hip replacement Take 1-4 tablets by mouth 2 times daily if needed for Constipation. 100 tablet 11/09/2014 4:29 PM CDT 11/10/19 15 Active aspirin 325 mg tabletIndication s:S/P hip replacement Take 1 tablet by mouth 2 times daily with meals. 60 tablet 1 11/09/2014 4:29 PM CDT 11/10/19 15 Active WalkerIndication s:S/P hip replacement 2 Wheeled Walker for home use. 1 Device 0 11/10/19 15 Active oxyCODONE (ROXICODONE) 5 mg immediate release tabletIndication s:S/P hip replacement Take 1-3 tablets by mouth every 4 hours. 90 tablet 11/10/2014 1:37 PM CDT 11/10/19 15 Active Active Problems Problem Noted Date Diagnosed Date S/P left total hip arthroplasty 11/08/2014 HTN (hypertension) 09/18/2014 Overview (09/18/2014): Lisinopril Osteoarthritis of right hip 09/18/2014 Overview (09/18/2014): R total hip arthroplasty on 09/20/[address] 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 Gender Identity Not on file Sexual Orientation Not on file Obstetrics History Last Filed Vital Signs Vital Sign Reading Time Taken Comments Blood Pressure 107/62 11/10/2014 8:00 AM CDT Pulse 76 11/10/2014 8:00 AM CDT Temperature 36.4 C (97.6 F) 11/10/2014 8:00 AM CDT Respiratory Rate 16 11/10/2014 8:00 AM CDT Oxygen Saturation 95% 11/10/2014 8:00 AM CDT Inhaled Oxygen Concentration - - Weight 115.1 kg (253 lb 12 oz) 11/08/2014 7:45 A M CDT Height 182.9 cm (6') 11/08/2014 7:45 AM CDT Body Mass Index 34.41 11/08/2014 7:45 AM CDT Plan of Treatment Health Maintenance Due Date Last Done Comments Tetanus booster 1972 Depression screening for age 12+ 1973 HIV for age 15-65 1976 BMI (ht and wt on same day) for age 18+ 06/24/1979 Hepatitis C screening for age 18-79 06/24/1979 Colonoscopy through age 75 2006 Lipids for age 45-75 2006 Pneumococcal series for age 50+ (1 of 1 - PCV) 06/24/2011 Zoster (shingles) series for age 50+ (1 of 2) 06/24/2011 COVID-19 vaccine series (2023- season) 2023 01/16/2022, 07/11/2021, 07/10/2020, Additional history exists Influenza Vaccine (#1) 2024 RSV vaccine for adults or (1 - 1-dose 75+ series) 2036 Hepatitis B series for 19+ Aged Out N o longer eligible based on patient's age to complete this topic Medical Devices Implanted Type Area Colliery Clerk Device Identifier Shelf Expiration Date Model / Serial / Lot Screw Sm Joint 6.5x30mm Canclls Bone - [id number] Implanted:Qty: 1 on 09/20/2014 at [facility] Ortho Imp.,Screw s & Plates Right: Hip [employer] [id number] -1# / / [id number] Screw Sm Joint 6.5x30mm Canclls Bone - [id number] Implanted:Qty: 1 on 09/20/2014 at [facility] Ortho Imp.,Screw s & Plates Right: Hip [employer] [id number] -1# / / [id number] Screw Sm Joint 6.5x25mm Canclls Bone - [id number] Implanted:Qty: 1 on 11/08/2014 by Luc Santiago MD at [facility] Ortho Imp.,Screw s & Plates Left: Hip [employer] 8826-0589 -1# / / [id number] Shell Hip Od64mm Tritanium Cluster Tritanium - [id number] Implanted:Qty: 1 on 09/20/2014 at [facility] Right: Hip [employer] 502-03-64 G# / / [id number] Liner Hip Id36mm Szg 0deg Trident X3 - [id number] Implanted:Qty: 1 on 09/20/2014 at [facility] Right: Hip [employer] 623-00-36 G# / / [id number] Plug Hip Trident - [id number] Implanted:Qty: 1 on 09/20/2014 at [facility] Right: Hip [employer] 1810-7251 -1# / / [id number] Stem Hip Sz6 132deg Accolade Ii - [id number] Implanted:Qty: 1 on 09/20/2014 at [facility] Right: Hip [employer] 8416-9571 # / / [id number] Head Hip Od36mm +7.5 Biolox Delta C-Taper Alumina Cer - [id number] Implanted:Qty: 1 on 09/20/2014 at [facility] Right: Hip [employer] 6570-0-73 6# / / [id number] Screw Sm Joint 6.5x35mm Canclls Bone - [id number] Implanted:Qty: 1 on 11/08/2014 by Luc Santiago MD at [facility] Left: Hip [employer] 1432-1645 -1# / / [id number] Liner Hip Id36mm Szg 0deg Trident X3 - [id number] Implanted:Qty: 1 on 11/08/2014 by Luc Santiago MD at [facility] Left: Hip [employer] 623-00-36 G# / / [id number] Screw Sm Joint 6.5x16mm Canclls Bone - [id number] Implanted:Qty: 1 on 11/08/2014 by Luc Santiago MD at [facility] Left: Hip [employer] 4160-8040 -1# / / [id number] Shell Hip Od64mm Tritanium Cluster Tritanium - [id number] Implanted:Qty: 1 on 11/08/2014 by Luc Santiago MD at [facility] Left: Hip [employer] 502-03-64 G# / / [id number] Stem Hip Sz6 132deg Accolade Ii - [id number] Implanted:Qty: 1 on 11/08/2014 by Luc Santiago MD at [facility] Left: Hip [employer] 1952-7738 # / / [id number] Head Hip Od36mm +7.5 Biolox Delta C-Taper Alumina Cer - [id number] Implanted:Qty: 1 on 11/08/2014 by Luc Santiago MD at [facility] Left: Hip [employer] 6570-0-73 6# / / [id number] Plug Hip Trident - [id number] Implanted:Qty: 1 on 11/08/2014 by Luc Santiago MD at [facility] Left: Hip [employer] 5818-6087 -1# / / [id number] Insurance [address] [place] [id number] [facility] [address] [place] [address] Advance Directives Documents on File Type Date Recorded Patient Paint Prep Technician Expl anation Healthcare Directive 09/20/2014 12:00 AM * Full Code (Latest Code Status on File) Date Activated Date Inactivated Comments 11/08/2014 3:51 PM 11/10/2014 6:56 PM * Full Code Date Activated Date Inactivated Comments 11/08/2014 7:08 AM 11/08/2014 3:45 PM * Full Code Date Activated Date Inactivated Comments 09/20/2014 1:35 PM 09/22/2014 7:12 PM * Full Code Date Activated Date Inactivated Comments 09/20/2014 6:46 AM 09/20/2014 1:35 PM Care Teams Textiles Sales Representative Relationship Specialty Start Date End Date Hayden Landry PCP - General Internal Medicine 09/15/14
[2024-10-17 20:24] LABS: Potassium* 4.2 mmol/L (3.6-5.1)
--- OUTSIDE RECORDS SUMMARY | 2024-10-17 20:24 | XMS_ITS | Encounter Summary ---
Author Organization [facility] Address [address] [place] [address] Care Team Providers Care Software Tools Engineer Name Role Phone Marielle Alcocer M.D. Primary Care Pro vider Reason for Visit * Reason Onset Date Comments Med Refill 10/06/2024 Encounter Details Date Type Department Care Team (Late st Contact Info) Description 10/06/2024 Refill Department of Family Medicine, [facility], in [address] [phone] Marielle Alcocer M.D. [address] [place] [phone] Med Refill Social History Tobacco Use Types Packs/Day Years Used Date Smoking Tobacco: Former Cigarettes 0.5 32.8 0 06/22/1995 - 12/14/2022 Passive Smoke Exposure: Never Smokeless Tobacco: Never Comments:11/2022 - Plans to s lenny quit. Alcohol Use Standard Drinks/Week Comments Not Currently 0 (1 standard drink = 0.6 oz pure alcohol) daily before hospital stay (01/02/2023) [facility] Utilities Answer Date Recorded In the past 12 months has teextee, gas, oil, or water company threatened to shut off services in your home? No 06/15/2024 Humiliation, Afraid, Rape, and Kick questionnair e Answer Date Recorded Within the last year, have y ou been afraid of your partner or ex-partner? No 05/09/2024 Within the last year, have y ou been humiliated or emotionally abused in other ways by your partner or ex-partner? No Within the last year, have y ou been kicked, hit, slapped, or otherwise physically hurt by your partner or ex-partner? No 05/09/2024 Within the last year, have y ou been raped or forced to have any kind of sexual activity by your partner or ex-partner? No 05/09/2024 Hunger Vital Sign Answer Date Recorded Within the past 12 months, y ou worried that your food would run out before you got the money to buy more. Never true 06/16/19 Within the past 12 months, t he food you bought just didn't last and you didn't have money to get more. Never true 06/15/2024 PRAPARE - Transportation Answer Date Re corded In the past 12 months, has l ack of transportation kept you from medical appointments or from getting medications? No 05/22 In the past 12 months, has l ack of transportation kept you from meetings, work, or from getting things needed for daily living? No 06/15/2024 Depression Answer Date Recor ded PHQ-9 Total Score (max 27) 2 04/22 Housing Stability Answer Date Recorded What is your living situation today? I have a [facility] place to live 06/15/2024 Education Answer Date Recorded What is the highest level of school you have completed or the highest degree you have received? Bachelor's degree (e.g., BA, AB, BS) 12/02/2018 Sex and Gender Information Value Date Recorded Sex Assigned at Male 05/17/2021 7:04 AM FURNACE CONVERTER Legal Sex Male 11:46 PM FURNACE CONVERTER Gender Identity Male 05/17/2021 7:04 AM FURNACE CONVERTER Sexual Orientation Straight 05/17/2021 7: 04 AM FURNACE CONVERTER documented as of this encounter Plan of Treatment Upcoming Encounters Date Type Department Care Team (Late st Contact Info) Description 11/03/2024 11:40 AM CDT Office Visit Department of Family Medicine, [facility], in [address] [phone] Marielle Alcocer M.D. [address] [place] [phone] Scheduled Procedures Name Priority Associated Diagnoses Date/Ti me ROBOTIC-ASSISTED KNEE TOTAL ARTHROPLASTY Primary Osteoarthritis Knee Right documented as of this encounter Goals Goal Patient Goal Type Associated Problems Recent Progress Patient-Stated? Author Increase physical activity Exercise On track(2021 5:16 PM CDT) No Calista Jorge REyalN. Note: Derrick will slowly work back up to walking at least 30 minutes 5 times a week. Self Management of Heart Failure General On track(2021 5:16 PM CDT) No Calista Jorge R.N. Note: -Eat a well balanced diet including: fruits and vegetables whole grains fat-free or low-fat dairy products lean proteins -Limit sodium to less than 2000 mg/day -Limit alcohol -Limit fats and cholesterol - Regular exercise -Wear compression stockings as directed -Elevate legs whenever possible. Call if noticeable change in swelling -Call if noticeable change in bloating -Record weight daily. Call if weight up 2-3 lbs in one day or 5lbs over baseline. -Record blood pressure and heart rate. -Use your heart failure action plan Self Management of Hypertension General On track(2021 5:16 PM CDT) No Calista Jorge R.N. Note: Derrick will check his blood pressure and weights daily and record them. Autogenerated Goal Care Plan Autogenerated Problem No Fina Lopez R.N. documented as of this encounter Visit Diagnoses Not on filedocumented in this encounter Additional Health Concerns Active Problems Noted Date Diagnosed Date Autogenerated Problem 09/02/2024 Assessment Noted Time PHQ-9 Depression Total Score: 2 04/22/19 25 10:10 AM FURNACE CONVERTER documented as of this encounter Care Teams Software Tools Engineer Relationship Specialty Start Date End Date Leung Marielle Solorio M.D. [address] [phone] PCP - General Family Medicine 09/10/23 documented as of this encounter
--- OUTSIDE RECORDS SUMMARY | 2024-10-17 20:24 | XMS_ITS | Encounter Summary ---
Author Organization [facility] Address [address] [place] [address] Care Team Providers Care Hand Wood Sander Name Role Phone Marielle Alcocer M.D. Primary Care Pro vider Reason for Visit * Reason Comments Med Refill Encounter Details Date Type Department Care Team (Late st Contact Info) Description 08/31/2024 Refill [facility] in [facility] [address] [place] [phone] Marielle King, BRENT, C.N.P., D.N.P. [address] [place] [phone] Med Refill Social History Tobacco Use Types Packs/Day Years Used Date Smoking Tobacco: Former Cigarettes 0.5 32.8 0 06/22/1995 - 12/14/2022 Passive Smoke Exposure: Never Smokeless Tobacco: Never Comments:11/2022 - Plans to s lenny quit. Alcohol Use Standard Drinks/Week Comments Not Currently 0 (1 standard drink = 0.6 oz pure alcohol) daily before hospital stay (01/02/2023) [facility] Utilities Answer Date Recorded In the past 12 months has [employer], gas, oil, or water company threatened to [...] your living situation today? I have a [facility] place to live 06/15/2024 Education Answer Date Recorded What is the highest level of school you have completed or the highest degree you have received? Bachelor's degree (e.g., BA, AB, BS) 12/02/2018 Sex and Gender Information Value Date Recorded Sex Assigned at Male 05/17/2021 7:04 AM NUCLEAR PHARMACIST Legal Sex Male 11:46 PM NUCLEAR PHARMACIST Gender Identity Male 05/17/2021 7:04 AM NUCLEAR PHARMACIST Sexual Orientation Straight 05/17/2021 7: 04 AM NUCLEAR PHARMACIST documented as of this encounter Plan of Treatment Upcoming Encounters Date Type Department Care Team (Late st Contact Info) Description 11/03/2024 11:40 AM CDT Office Visit Department of Family Medicine, [facility], in [place] [place] [phone] Leung Marielle Solorio M.D. [address] [place] [phone] Scheduled Procedures Name Priority Associated Diagnoses Date/Ti me ROBOTIC-ASSISTED KNEE TOTAL ARTHROPLASTY Primary Osteoarthritis Knee Right documented as of this encounter Goals Goal Patient Goal Type Associated Problems Recent Progress Patient-Stated? Author Increase physical activity Exercise On track( 5:16 PM CDT) No Calista Jorge, REyalN. Note: Derrick will slowly work back up to walking at least 30 minutes 5 times a week. Self Management of Heart Failure General On track( 5:16 PM CDT) Calista Riggs REyalN. Note: -Eat a well balanced diet including: [...] plan Self Management of Hypertension General On track( 5:16 PM CDT) No Calista Jorge, R.N. Note: Derrick will check his blood pressure and weights daily and record them. documented as of this encounter Visit Diagnoses Diagnosis Cardiomyopathy Ischemic documented in this encounter Additional Health Concerns Assessment Noted Time PHQ-9 Depression Total Score: 2 04/22/19 25 10:10 AM NUCLEAR PHARMACIST documented as of this encounter Care Teams Hand Wood Sander Relationship Specialty Start Date End Date Marielle Alcocer M.D. [address] [place], [place] [address]mar[place] [phone] PCP - General Family Medicine 09/10/23 documented as of this encounter
--- OUTSIDE RECORDS SUMMARY | 2024-10-17 20:24 | XMS_ITS | Encounter Summary ---
Author Organization [facility] Address [address] [place] [address] Care Team Providers Care Ceo Name Role Phone Marielle Alcocer M.D. Primary Care Pro vider Reason for Visit * Reason Onset Date Comments Reschedule 08/24/2024 Encounter Details Date Type Department Care Team (Late st Contact Info) Description 08/24/2024 Clinical Communication Department of Orthopedic Surgery in [place], [place] [address] [place] [phone] Sergio Montano M.D. [address] [place] [phone] Reschedule Social History Tobacco Use Types Packs/Day Years Used Date Smoking Tobacco: Former Cigarettes 0.5 32.8 0 06/22/1995 - 12/14/2022 Passive Smoke Exposure: Never Smokeless Tobacco: Never Comments:11/2022 - Plans to s lenny quit. Alcohol Use Standard Drinks/Week Comments Not Currently 0 (1 standard drink = 0.6 oz pure alcohol) daily before hospital stay (01/02/2023) [facility] Utilities Answer Date Recorded In the past 12 months has [employer] electric, gas, oil, or water company threatened [...] your living situation today? I have a [facility] place to live 06/15/2024 Education Answer Date Recorded What is the highest level of school you have completed or the highest degree you have received? Bachelor's degree (e.g., BA, AB, BS) 12/02/2018 Sex and Gender Information Value Date Recorded Sex Assigned at Male 05/17/2021 7:04 AM EQUITY DIRECTOR Legal Sex Male 11:46 PM EQUITY DIRECTOR Gender Identity Male 05/17/2021 7:04 AM EQUITY DIRECTOR Sexual Orientation Straight 05/17/2021 7: 04 AM EQUITY DIRECTOR documented as of this encounter Plan of Treatment Upcoming Encounters Date Type Department Care Team (Late st Contact Info) Description 11/03/2024 11:40 AM CDT Office Visit Department of Family Medicine, [facility], in [place] [phone] Marielle Alcocer M.D. [address] [place] [phone] Scheduled Procedures Name Priority Associated Diagnoses Date/Ti [...] filedocumented in this encounter Additional Health Concerns Assessment Noted Time PHQ-9 Depression Total Score: 2 04/22/19 25 10:10 AM EQUITY DIRECTOR documented as of this encounter Care Teams Ceo Relationship Specialty Start Date End Date Marielle Alcocer M.D. [id number] [place], [place] [address] [phone] PCP - General Family Medicine 09/10/23 documented as of this encounter
--- OUTSIDE RECORDS SUMMARY | 2024-10-17 20:24 | XMS_ITS | Encounter Summary ---
Author Organization [facility] Address [address] [place] [address] Care Team Providers Care Knockdown Man Name Role Phone Marielle Alcocer M.D. Primary Care Pro vider Encounter Details Date Type Department Care Team (Late st Contact Info) Description 09/30/2024 Clinical Communication Department of Orthopedic Surgery in [place], [place] [address] [place] [address] Helen Felipe, LEyalPEyalN. [address] [place] [phone] Social History Tobacco Use Types Packs/Day Years Used Date Smoking Tobacco: Former Cigarettes 0.5 32.8 0 06/22/1995 - 12/14/2022 Passive Smoke Exposure: Never Smokeless Tobacco: Never Comments:11/2022 - Plans to s lenny quit. Alcohol Use Standard Drinks/Week Comments Not Currently 0 (1 standard drink = 0.6 oz pure alcohol) daily before hospital stay (01/02/2023) [facility] Utilities Answer Date Recorded In the past 12 months has [facility] [employer], gas, oil, or water [employer] threatened to shut off services in your [...] your living situation today? I have a [facility] place to live 06/15/2024 Education Answer Date Recorded What is the highest level of school you have completed or the highest degree you have received? Bachelor's degree (e.g., BA, AB, BS) 12/02/2018 Sex and Gender Information Value Date Recorded Sex Assigned at Male 05/17/2021 7:04 AM PHOTOGRAPHIC PROCESS WORKER Legal Sex Male 11:46 PM PHOTOGRAPHIC PROCESS WORKER Gender Identity Male 05/17/2021 7:04 AM PHOTOGRAPHIC PROCESS WORKER Sexual Orientation Straight 05/17/2021 7: 04 AM PHOTOGRAPHIC PROCESS WORKER documented as of this encounter Plan of Treatment Upcoming Encounters Date Type Department Care Team (Late st Contact Info) Description 11/03/2024 11:40 AM CDT Office Visit Department of Family Medicine, [facility], in [address] [phone] Marielle Alcocer M.D. [address] [phone] Scheduled Procedures Name Priority Associated Diagnoses Date/Ti [...] PM CDT) No Calista Jorge REyalN. Note: -Eat a well balanced diet [...] No Calista Jorge REyalN. Note: Derrick will check his blood pressure and weights daily and record them. Autogenerated Goal Care Plan Autogenerated Problem No Fina Lopez R.N. documented as of this encounter Visit Diagnoses Not on filedocumented in this encounter Additional Health Concerns Active Problems Noted Date Diagnosed Date Autogenerated Problem 09/02/2024 Assessment Noted Time PHQ-9 Depression Total Score: 2 04/22/19 25 10:10 AM PHOTOGRAPHIC PROCESS WORKER documented as of this encounter Care Teams Knockdown Man Relationship Specialty Start Date End Date Marielle Alcocer M.D. [address] [phone] PCP - General Family Medicine 09/10/23 documented as of this encounter
--- OUTSIDE RECORDS SUMMARY | 2024-10-17 20:24 | XMS_ITS | Clinical Summary ---
Author Organization [facility] Address [address] [place] [address] Care Team Providers Care Health Concierge Name Role Phone Marielle Alcocer M.D. Primary Care Pro vider Source Comments Patient records contain information from all sites at [facility]. For routine questions regarding patient records, call [phone] during business hours, M-F 8:00 AM - 5:00 PM Central Time. Record requests for emergency care only can be directed to [phone] at any time.[facility] Allergies No known active allergies Medications * This document contains information received from the source organization and may not represent a complete record from that organization. nitroglycerin (NITROSTAT) 0.[address] 1 tablet (0.4 mg total) under the tongue every 5 (five) minutes as needed for chest pain for up to 2 doses. 25 tablet 12/11/19 23 Active lidocaine (Lidoderm) 5 % adhesive patch,medicated Place 1 patch on the skin daily as needed. Apply to back. Leave on for up to 12 hours. Must remain patch free for 12 hours. 7 patch 01/01/20 23 Active nystatin (NYSTOP) 100,000 unit/gram powder Apply 1 Application topically 2 (two) times a day. Apply to groin folds. 15 g 01/10/20 23 Active spironolactone (ALDACTONE) 25 mg tabletIndicatio ns:Chronic Systolic (Congestive) Heart Failure (HCC) Take 1 tablet (25 mg total) by mouth daily. 90 tablet 3 09/01/19 24 Active polycarbophil (FIBERCON) 625 mg tabletIndicatio ns:Change In Bowel Habit Take 1 tablet (625 mg total) by mouth 3 (three) times a day. Indication: Bowel regularity 90 tablet 3 09/01/19 24 Active multivitamin-mi jszokp-AD-oihkd jaclyn-lutein (Centrum Silver) 0.4 mg-300 mcg- 250 mcg tablet Take 1 tablet by mouth daily. Take 1 tablet by mouth daily. 90 tablet 3 09/01/19 24 Active sacubitriL-vals jeffrey (Entresto) 49-51 mg per tablet Take 1 tablet by mouth 2 (two) times a day. 180 tablet 3 01/21/20 24 025 Active sennosides-docu sate sodium (Senokot-S) 8.6-50 mg per tablet Take 1-2 tablets by mouth 2 (two) times a day as needed for constipation. 50 tablet 2 05/11/2024 4:13 PM PHOTOGRAPHER APPRENTICE LITHOGRAPHIC 05/10/19 25 Active acetaminophen (TylenoL) 500 mg tablet Take 2 tablets (1,000 mg total) by mouth 3 (three) times a day as needed for pain. While awake. 100 tablet 2 05/11/2024 4:13 PM PHOTOGRAPHER APPRENTICE LITHOGRAPHIC 05/10/19 25 Active pregabalin (Lyrica) 100 mg capsule Take 1 capsule (100 mg total) by mouth 3 (three) times a day. 270 capsule 3 06/24/19 25 026 Active ezetimibe (Zetia) 10 mg tablet Take 1 tablet (10 mg total) by mouth daily. 90 tablet 3 06/24/19 25 Active metoprolol succinate (Toprol XL) 50 mg 24 hr tablet Take 1 tablet (50 mg total) by mouth daily. Do not crush or chew. 90 tablet 3 06/24/19 25 Active furosemide (Lasix) 20 mg tabletIndicatio ns:Cardiomyopat hy Ischemic Take 1 tablet (20 mg total) by mouth daily. 90 tablet 3 06/28/19 25 Active traMADoL (Ultram) 50 mg tabletIndicatio ns:Prolonged Acute Pain/Traumatic Injury Take 1-2 tablets (50-100 mg total) by mouth every 6 (six) hours as needed for acute surgical pain. 40 tablet 06/28/19 25 Active HYDROmorphone (Dilaudid) 2 mg tabletIndicatio ns:Prolonged Acute Pain/Traumatic Injury Take 1 tablet (2 mg total) by mouth every 6 (six) hours Indication: Prolonged Acute Pain/Traumatic Injury. 20 tablet 06/28/19 25 Active rosuvastatin (Crestor) 40 mg tabletIndicatio ns:Hyperlipidem ia Take 1 tablet (40 mg total) by mouth at bedtime. 90 tablet 3 07/06/19 25 Active finasteride (Proscar) 5 mg tabletIndicatio ns:Nocturia Take 1 tablet (5 mg total) by mouth daily. Indication: BPH with nocturia 90 tablet 3 08/26/19 25 Active dapagliflozin propanediol (Farxiga) 10 mg tabletIndicatio ns:Cardiomyopat hy Ischemic Take 1 tablet (10 mg total) by mouth daily. 90 tablet 3 09/08/19 25 026 Active venlafaxine XR (Effexor-XR) 37.5 mg 24 hr capsule Take 1 capsule (37.5 mg total) by mouth daily with morning meal. 90 capsule 3 09/09/19 25 Active clopidogreL (Plavix) 75 mg tablet Take 1 tablet (75 mg total) by mouth daily. Lifelong for CAD 90 tablet 3 10/07/19 25 Active naltrexone (Depade) 50 mg tablet Take 1 tablet (50 mg total) by mouth daily. 90 tablet 3 10/13/19 24 025 clopidogreL (Plavix) 75 mg tablet Take 1 tablet (75 mg total) by mouth daily. Lifelong for CAD 12/24/19 24 025 Discontinu ed(Reorder ) Active Problems Patient Care Coordination No te Formatting of this note migh t be different from the original. Living Situation/Support: In own apartment Home Medication Information: Manages own meds and takes daily out of the pill bottles MTM Consult: declined DME: Life vest, glasses/contacts, gripper for reaching, lift chair, blood pressure machine, scale, Fitbit, and sock assist Functional Status: Independent Community Services/County Contacts: None CHW: None Other: None Problem Noted Date Diagnosed Date Primary Osteoarthritis Knee Right 08/26/2024 Primary Osteoarthritis Hip Right 08/09/2024 Morbid Obesity Body Mass Index 40.0-44.9 Adult 0 2024 Abnormal Gait Non Orthopedic 04/22/2024 Primary Osteoarthritis Knee Left 03/28/2024 Assessment & Plan (05/09/2024 4:03 PM PHOTOGRAPHER APPRENTICE LITHOGRAPHIC): Continue treatment for left total knee arthroplasty per Orthopedics Nocturia 07/06/2023 Overview (07/06/2023): Tamsulosin initiated 02/2023 Finasteride initiated 05/2023 Assessment & Plan (07/06/2023 4:11 PM CDT): Has not noticed significant improvement in symptoms with tamsulosin alone. We discussed option of trialing finasteride and reviewed potential side effects. We also reviewed duration that the finasteride would take to have effect if this is being driven predominantly by his prostate. He is understanding of this and wanting to trial finasteride. Colitis Lymphocytic 04/24/2023 Overview (08/11/2023): Diagnosed on 04/22/2023 colonoscopy after months of chronic diarrhea. Started on taper of budesonide. Continues to use Lomotil daily Assessment & Plan (07/06/2023 4:09 PM CDT): He continues on taper of budesonide with order scheduled to wrap up in early June. He notes still some softer stools but significantly improved bowel movements overall and will continue on taper. Banana flakes recently stopped. We discussed simplifying his regimen further with discontinuation of probiotic. Has Lomotil and fiber scheduled as well and discussed potentially stopping down the road, depending on how he does coming off the budesonide and stopping the probiotic. Pain Knee Left 04/03/2023 Overview (07/06/2023): Kenalog injection August 2022 Repeat left knee injection 06/15/2023 Assessment & Plan (07/06/2023 4:14 PM CDT): Recently had left knee injection completed. Notes some slight benefit. He also was able to talk with Dr. Matta about potential knee replacement. He would need to be 12 months out from stent placement to allow for Plavix to be held before undergoing surgery. He is understanding and comfortable with that. He was wanting work on weight loss to improve success of any outcomes for total knee arthroplasty if pursuing that in later 2023/early 2024. Assessment & Plan (04/29/2023 9:32 AM PHOTOGRAPHER APPRENTICE LITHOGRAPHIC): Appointment with family practice on 06/10/[address] a referral was ortho to see if we can get him in sooner for injection and/or evaluation for knee replacement. Assessment & Plan (04/03/2023 5:00 PM PHOTOGRAPHER APPRENTICE LITHOGRAPHIC): Complaining of left knee pain. Will obtain x-ray. Refer to family practice for another knee injection Diarrhea 02/13/2023 Overview (02/13/2023): Derrick has been having loose stool since admission to [facility] on 01/09/2023. He has been tested for infectious sources with negative C.diff testing on 01/14/2023 and complete stool panel on 01/22/2023 with negative findings. On 02/10/2023 - blood work checked, including CBC with diff, CRP, CMP, Thyroid, Celiac and tTG. All laboratory findings within normal limits. For symptomatic treatment he is receiving Lomotil 2 tablets QID PRN; FiberCon daily Culturelle daily shayy Flakes TID with meals was added yesterday. He reports that he is having 3-5 loose, watery stools daily. He routinely wakes up around 2 a.m. with loose stool, 6 a.m. and then after all three meals. He rarely has bowel incontinence. This was not happening before his heart attack or fall with fracture. GI Pathogen Panel, PCR, Feces Order: [id number] Status: Final result Visible to patient: Yes (seen) Dx: Diarrhea Specimen Information: Stool 0 Result Notes Component Ref Range & Units 3 wk ago Specimen Source STOOL Campylobacter species Negative Negative C. difficile toxin Negative Negative Plesiomonas shigelloides Negative Negative Salmonella species Negative Negative Vibrio species Negative Negative Vibrio cholerae Negative Negative Yersinia species Negative Negative Enteroaggregative E. coli (EAEC) Negative Negative Enteropathogenic E. coli (EPEC) Negative Negative Enterotoxigenic E. coli (ETEC) Negative Negative Shiga toxin producing E. coli Negative Negative Shigella/Enteroinvasive E. coli Negative Negative Cryptosporidium species Negative Negative Cyclospora cayetanensis Negative Negative Entamoeba histolytica Negative Negative Giardia Negative Negative Adenovirus F40/41 Negative Negative Astrovirus Negative Negative Norovirus GI/GII Negative Negative Rotavirus Ag, F Negative Negative Sapovirus Negative Negative Assessment & Plan (04/29/2023 9:33 AM PHOTOGRAPHER APPRENTICE LITHOGRAPHIC): Still waiting on results of colonoscopy. At this point there are no signs of a cause for his diarrhea. Still waiting on culture. Recommend BRAT diet to try to identify triggers in his diet for diarrhea. Assessment & Plan (04/03/2023 3:23 PM PHOTOGRAPHER APPRENTICE LITHOGRAPHIC): Last stool study did not result the ordered calprotectin. Fat was note elevated. Will get updated stool study with calprotectin and stool electrolytes. Assessment & Plan (02/13/2023 8:34 PM PHOTOGRAPHER APPRENTICE LITHOGRAPHIC): Discussed this patient with Dr. Chatterjee, as he has been following Derrick's progress and today was my first encounter with Derrick. We discussed that Derrick continues to have 3-5 loose, watery stools daily. The diarrhea is waking him up in the middle of the night. He experiences some abdominal cramping prior to having a BM. He has completed C diff testing and also subsequent GI pathogen panel testing, all negative for infectious causes of diarrhea. Pharmacy review noted that there can be increased rates of diarrhea, up to 12% with carvedilol. (He was switched from metoprolol back to carvedilol by Cardiology in November of this year.) Consulted [facility] and recommended next step for chronic diarrhea is to order fecal calprotectin and fecal fat. Placed the following orders at [facility] - D/C Carvedilol and start Metoprolol Succinate 25 mg daily Order placed to check Fecal calprotectin and Fecal Fat No end date on nanoflakes Pain Low Back Vertebrogenic 01/03/2023 Overview (02/08/2023): Encounter opened in error Assessment & Plan (02/08/2023 8:54 AM PHOTOGRAPHER APPRENTICE LITHOGRAPHIC): Encounter opened in error Pain Neck 01/02/2023 Diffuse Idiopathic Skeletal Hyperostosis 023 Pain Chest 12/07/2022 Apnea Sleep Obstructive 09/02/2022 Assessment & Plan (05/09/2024 4:05 PM PHOTOGRAPHER APPRENTICE LITHOGRAPHIC): - CPAP if available Smoking Tobacco Use Personal History 06/13/2021 Overview (06/13/2021): Quit smoking with CT in 05/2021 Therapy Pathology Specialist Antiplatelet 06/05/2021 Assessment & Plan (05/09/2024 4:05 PM PHOTOGRAPHER APPRENTICE LITHOGRAPHIC): Resume Plavix postoperatively Coronary Stent Status Post 05/30/2021 Overview (04/03/2023): 05/27/2021: LEOBARDO to RCA 12/08/2022: PCI to LAD and first diagonal Bypass Coronary Artery Graft Status Post 022 Overview (05/30/2021): 05/30/2021 CABG x1 MARK to LAD Chronic Systolic (Congestive) Heart Failure 05/21 Assessment & Plan (05/09/2024 4:05 PM PHOTOGRAPHER APPRENTICE LITHOGRAPHIC): History of heart failure- HFrEF - hold Lasix - monitor for signs of volume overload Cardiomyopathy Ischemic 05/30/2021 Overview (04/03/2023): Echo 11/2022: LVEF 35% - 40% Myocardial Infarction Old 05/27/2021 Obesity Body Mass Index 30-39.9 Adult 12/02/2018 Overview (07/06/2023): Body mass index is 45.43 kg/m . Assessment & Plan (07/06/2023 4:13 PM CDT): Has been working on weight loss, set a goal to be under BMI of 40 by later this year to help with plans regarding potential total knee arthroplasty in the future. Assessment & Plan (04/03/2023 4:59 PM PHOTOGRAPHER APPRENTICE LITHOGRAPHIC): Derrick has been eating double meals lately. He has gained weight, 3 lb this week. Derrick states that he has lost a 100 lb in the past. He knows how to do this. I encouraged him to take action. Hyperlipidemia 12/02/2018 Assessment & Plan (05/09/2024 4:08 PM PHOTOGRAPHER APPRENTICE LITHOGRAPHIC): Hold statin therapy Assessment & Plan (04/03/2023 3:25 PM PHOTOGRAPHER APPRENTICE LITHOGRAPHIC): Was noted that prior rosuvastatin order had a stop date associated with it. Have cleared that to have stop date removal as rosuvastatin is planned long-term. PreDiabetes 05/04/2017 Assessment & Plan (05/09/2024 4:07 PM PHOTOGRAPHER APPRENTICE LITHOGRAPHIC): Hold Lizzy Primary Osteoarthritis Shoulder Bilateral 2016 Moderate Or Severe Use Disor juan francisco (Dependence) Alcohol Remission 04/18/2016 Assessment & Plan (05/09/2024 4:07 PM PHOTOGRAPHER APPRENTICE LITHOGRAPHIC): Hold naltrexone Hypertensive Heart Disease With Heart Failure Overview (08/11/2023): Treated with metoprolol, spironolactone, Lasix, Entresto 08/11/2023: Blood pressure ranges: 118/82 to 125/92 Assessment & Plan (05/09/2024 4:10 PM PHOTOGRAPHER APPRENTICE LITHOGRAPHIC): hold Entresto, metoprolol, Lasix, Aldactone - consider restarting if patient is hypertensive postoperatively -EF 50% Assessment & Plan (04/29/2023 9:31 AM PHOTOGRAPHER APPRENTICE LITHOGRAPHIC): Spironolactone was given a stop date, this was discontinued. Spironolactone should not have a stop date. Assessment & Plan (03/20/2023 4:42 PM PHOTOGRAPHER APPRENTICE LITHOGRAPHIC): Obtain BMP to monitor potassium levels while on diuretic and spironolactone Depression Major Recurrent Mild 11/22/2014 Overview (08/11/2023): Maintained on Effexor. 08/04/2023 PHQ-9:3 Assessment & Plan (05/09/2024 4:04 PM PHOTOGRAPHER APPRENTICE LITHOGRAPHIC): Resume Effexor Assessment & Plan (08/11/2023 12:26 PM CDT): No GDR recommended at this time Assessment & Plan (08/04/2023 12:26 PM CDT): Pharmacy review recommends GDR. Will reduce venlafaxine Assessment & Plan (03/20/2023 4:43 PM PHOTOGRAPHER APPRENTICE LITHOGRAPHIC): Elias Warner has reached out to me with concern of depression, anxiety. She is worried that we will discharge him prematurely. Denies any need for antidepressant or antianxiety at this time. Resolved Problems Problem Noted Date Diagnosed Date Resolved Date Detention Stay Certification Exam 03/20/2023 12/24/2023 Overview (08/11/2023): Full code Heart healthy diet Average intake at meals 76-100% Continent of bladder and bowel Independent with ambulation No falls in the last 2 months 08/04/2023 BIMS score: 15 PHQ-9 score: 3 Assessment & Plan (08/25/2023 4:13 PM CDT): Medication reconciliation completed. Recertify. Derrick is preparing to move to an apartment in [place]. He is going on a tour tomorrow. Once he moves, he would like to pursue Cardiac rehab and establish care in the local area. Assessment & Plan (07/06/2023 4:16 PM CDT): Patient is appropriate intermediate resident at this time. He was working with social media senior associate to identify places to discharge to when timing appropriate. He notes a few places are 62 and older establishments and he is soon going to turn 63, allowing him to apply for those locations. He is comfortable with either [place] or [facility] locations. Recertification paperwork signed following our visit, this included review of medications and orders. Assessment & Plan (04/29/2023 9:30 AM PHOTOGRAPHER APPRENTICE LITHOGRAPHIC): Medication reconciliation completed. Recertify. Assessment & Plan (04/03/2023 3:26 PM PHOTOGRAPHER APPRENTICE LITHOGRAPHIC): Patient is appropriate rehab resident. Recertification paperwork signed following our visit this included review of medications and orders. Assessment & Plan (03/20/2023 4:44 PM PHOTOGRAPHER APPRENTICE LITHOGRAPHIC): Medication reconciliation completed. Recertify. Pressure Injury (Ulcer) Of O ther Site Unstageable (HCC) [L89.890 (ICD-10-CM)] 01/12/2023 04/22/2024 Overview (01/19/2023): Bilateral axilla pressure injuries from medical lead. Currently treated with silverstat, cover with Mepilex. Change daily. Assessment & Plan (04/03/2023 3:26 PM PHOTOGRAPHER APPRENTICE LITHOGRAPHIC): Axillary site on right continues to improve. Left side has closed. Assessment & Plan (01/19/2023 4:15 PM CDT): Continue with silverstat and cover with mepilex on the right. Can d/c silverstat on the left arm. Continue mepilex for prevention of breakdown. Assessment & Plan (01/12/2023 11:48 AM CDT): Unable to obtain pleura gel from pharmacy. Will change to Vaseline. Follow-up in week. Fracture Cervical Seventh No ndisplaced Closed Initial 01/03/2023 12/24/2023 Fracture Lumbar First Unstab le Burst Subsequent With Routine Healing 12/14/2022 12/24/19 Overview (07/06/2023): 12/14/22. 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 Assessment & Plan (07/06/2023 4:12 PM CDT): Has weaned out of TLSO brace at this time. Assessment & Plan (04/03/2023 3:25 PM PHOTOGRAPHER APPRENTICE LITHOGRAPHIC): Had with Neurosurgery 03/12 and he has initiated on the 5 week weaning protocol for back brace. Been cleared to work with therapy, including stretching and strengthening. Have also written to taper Dilaudid to just 2 mg every 4 hours with plans for continuing taper on future visits. Non-ST Elevation Myocardial Infarction 12/08/2022 10/16/2023 Postprocedural Pneumothorax 06/04/2021 06/13/2021 Atelectasis 06/04/2021 06/13/2021 Effusion Pleural 06/04/2021 06/13/2021 Anemia Posthemorrhagic Acute (Blood Loss Anemia) 06/04/2021 06/13/2021 Leukocytosis 06/04/2021 06/13/2021 Acidosis Lactic 05/30/2021 06/02/2021 Pain Chest 05/27/2021 06/06/2021 Overview (05/28/2021): Added automatically from request for surgery [id number] Injury Nose Superficial Initial 05/21/2021 06/13/2021 Overview (05/21/2021): Added automatically from request for surgery [id number] Laceration Nasal Initial 05/21/2021 Laceration Lip Initial 05/21/202106/13 Depression Personal History 04/18/2016 12/02/2018 Overview (12/02/2018): On Effexor in the past for single episode around 2013, likely associated with alcohol Abuse Tobacco Smoking 04/18/20162021 Arthroplasty Total Hip Repla cement Status Post Left 11/08/2014 12/02/2018 Encounters Date Type Department Care Team Description 10/06/2024 Refill Department of Family [facility], [facility], in [address] [place] [phone] Marielle Alcocer M.D. Med Refill 10/05/2024 Clinical Communication Department of Family [facility], [facility], in [address] [place] [address] Marielle Alcocer M.D. PandaDoc Form ([facility] dental clearance + OV) 09/30/2024 Clinical Communication Department of Orthopedic Surgery [address] [place] [phone] Helen Felipe L.P.N. 09/13/2024 Clinical Communication Pharmacy Prior [facility] [phone] Elaine Peres Rx PA not Needed (Farxiga 10 mg ) 09/07/2024 Refill Department of Family Medicine, [facility], in [address] [place] [address] Marielle Alcocer M.D. Med Refill 09/06/2024 Refill Senior Services in [address] [place] [phone] Marielle King APRN, C.N.P., D.N.P. Med Refill 09/05/2024 Refill Department of Family Medicine, [facility], in [address] [phone] Marielle Alcocer M.D. Med Refill 09/05/2024 Refill Senior Services in [address] [place] [phone] Marielle King APRN, C.N.P., D.N.P. Med Refill 09/03/2024 Refill Senior Services in [address] [phone] Marielle King APRN C.N.P., D.N.P. Med Refill 08/31/2024 Refill Senior Services in [address] [phone] Marielle King APRN C.N.P., D.N.P. Med Refill 08/24/2024 Clinical Communication Department of Orthopedic Surgery in [address] [phone] Sergio Montano M.D. Reschedule 08/24/2024 Refill Department of [facility], [facility], in [address] [phone] Marielle Alcocer M.D. Med Refill 08/02/2024 3:15 PM CDT Office Visit Department of Orthopedic Surgery in [address] [phone] Sergio Montano M.D. Primary Osteoarthritis Knee Right (Primary Dx) Discharge Disposition: Home or Self Care 08/02/2024 Clinical Communication Department of Orthopedic Surgery in [address] [phone] Sergio Montano M.D. Surgical Listing (Ortho ) 07/22/2024 2:00 PM CDT Clinical Support Department of Rehabilitation Services in [address] [phone] Sergio Montano M.D. Fogarty, Jennifer L, P.T., D.P.T. Pain Knee Left 07/18/2024 11:00 AM CDT Clinical Support Department of Rehabilitation Services in [address] [phone] Sergio Montano M.D. Buchholtz, Marie F, P.T., LynneP.T. Pain Knee Left from Last 3 Months Immunizations Immunization Administration Dates Next Due HepB Adult (HEPLISAV-B) 02/20/2022,11/22/2021, Influenza Split 04/12/2016 MMR 11/22/2021,10/08/2021 PCV20 07/01/2023 PPSV23 12/02/2018 Pneumococcal Conjugate(PCV), Unspecified 09/02/2022(Deferred: Patient decision) RZV (SHINGRIX) 09/02/2022(Deferred: Patient decision),05/01/2021,12/02/2018(Deferre d: Not available from freelance operator) SARS-COV-2 (COVID-19) - MODE RNA (12 YEARS AND OLDER) Fall Seasonal 12/24/2023 SARS-COV-2 (COVID-19) - MODERNA(Discontinued) 12/24/2023 SARS-COV-2 (COVID-19) - PFIZ ER (Discontinued)(12 years or older) 07/10/2020,06/19/2020 SARS-COV-2 (COVID-19) - PFIZ ER BIVALENT TS(Discontinued)(12 YEARS OR OLDER) 01/16/2022 SARS-COV-2 (COVID-19) - PFIZ ER TS(Discontinued)(12 years or older) 07/11/2021 Tdap 05/01/2021,04/17/2011 influenza trivalent vaccine (6 months and older)(PF) 12/24/2023 influenza vaccine quad (FLUZONE/FLUARIX) (6 months and older)(PF) 01/09/2023,01/16/2022,05/01/2021 Family History Medical History Relation Name Comments Amyloidosis Father sherman Arthritis Father sherman Heart failure Father shreman Hypertension Father sherman Sleep apnea Father sherman Diabetes Maternal Grandfather ewin Depression Mother sven Hypertension Mother sven Obesity Mother sven Stroke Mother sven 03/14 Alcohol abuse Mother's Brother rachell ojse Lung cancer Mother's Brother rachell jose Alcohol abuse Sister tabatha Depression Sister tabatha Obesity Sister tabatha Relation Name Status Comments Father sherman Maternal Grandfather ewin Mother sven Mother's Brother rachell jose Sister tabatha Social History Tobacco Use Types Packs/Day Years Used Date Smoking Tobacco: Former Cigarettes 0.5 32.8 0 06/22/1995 - 12/14/2022 Passive Smoke Exposure: Never Smokeless Tobacco: Never Tobacco Cessation:Counseling Given: Not Answered Comments:11/2022 - Plans to stay quit. Alcohol Use Standard Drinks/Week Comments Not Currently 0 (1 standard drink = 0.6 oz pure alcohol) daily before hospital stay (01/02/2023) [facility] Utilities Answer Date Recorded In the past 12 months has [facility] [employer], [employer], oil, or water [employer] threatened to shut off services in your [...] money to buy more. Never true 06/16/19 25 Within the past 12 months, t he [...] your living situation today? I have a [facility] place to live 06/15/2024 Education Answer Date Recorded What is the highest level of school you have completed or the highest degree you have received? Bachelor's degree (e.g., BA, AB, BS) 12/02/2018 Sex and Gender Information Value Date Recorded Sex Assigned at Male 05/17/2021 7:04 AM PHOTOGRAPHER APPRENTICE LITHOGRAPHIC Legal Sex Male 11:46 PM PHOTOGRAPHER APPRENTICE LITHOGRAPHIC Gender Identity Male 05/17/2021 7:04 AM PHOTOGRAPHER APPRENTICE LITHOGRAPHIC Sexual Orientation Straight 05/17/2021 7: 04 AM PHOTOGRAPHER APPRENTICE LITHOGRAPHIC Last Filed Vital Signs Vital Sign Reading Time Taken Comments Blood Pressure 96/89 2024 11:04 AM CDT Pulse 118 2024 11:04 AM CDT Temperature 35.9 C (96.6 F) 05/23/2024 7:16 PM PHOTOGRAPHER APPRENTICE LITHOGRAPHIC Respiratory Rate 19 05/23/2024 9:00 PM PHOTOGRAPHER APPRENTICE LITHOGRAPHIC Oxygen Saturation 95% 2024 11:04 AM CDT Inhaled Oxygen Concentration - - Weight 134 kg (294 lb 5 oz) 2024 11:04 AM CDT Height 181 cm (5' 11.26) 05/09/2024 12:43 PM CS T Body Mass Index 40.75 05/09/2024 12:43 PM PHOTOGRAPHER APPRENTICE LITHOGRAPHIC Plan of Treatment Upcoming Encounters Date Type Department Care Team (Late st Contact Info) Description 11/03/2024 11:40 AM CDT Office Visit Department of Family Medicine, [facility], in [address] [phone] Marielle Alcocer M.D. [address] [place] [phone] Scheduled Procedures Name Priority Associated Diagnoses Date/Ti me ROBOTIC-ASSISTED KNEE TOTAL ARTHROPLASTY Primary Osteoarthritis Knee Right Health Maintenance Due Date Last Done Comments CT Colonography 1961 Cologuard 1961 FIT 1961 RSV vaccine - (32-36 weeks) or 60+ years (1 - Risk 60-74 years 1-dose series) 2021 Zoster Vaccines (2 of 2) 06/26/2021 05/01/2021 Depression Monitoring (PHQ-9) 08/20/2024 04/22/2024 Influenza Vaccine (#1) 2024 , 01/09/2023, 01/16/2022, Additional history exists Creatinine Level (Kidney Function Test) 2025 2024, 05/23/2024, 01/12/2024, Additional history exists Fasting Glucose for Diabetes Screening 2025 2024, 05/23/2024, 05/09/2024, Additional history exists Office Visit for Blood Pressure Check / Re-check 2025 2024 Potassium Level 2025 2024, 03/0 05/2024, 01/12/2024, Additional history exists Sodium Level 2025 2024, 03/0 05/2024, 01/12/2024, Additional history exists Visit: Chronic Disease, age 18+ 2025 2024 Lipid (Cholesterol) Screening 2029 2024, 2023, 12/08/2022, Additional history exists DTaP,Tdap,and Td Vaccines (3 - Td or Tdap) 05/01/2031 05/01/2021, 04/17/2011 Colonoscopy 04/22/2033 04/22/2023 Colorectal Cancer Screening 04/22/2033 Hepatitis B Vaccines Completed 02/20/2022, 11/22/2021, 10/03/2021 Pneumococcal vaccine (50+ years) Completed 07/01/2023, 12/02/2018 COVID-19 Vaccine Completed 12/24/2023, 05/2023, 01/16/2022, Additional history exists Depression Monitoring (PHQ-9 for quality tracking) Completed 04/22/2024, 04/22/2024 IPV Vaccines Aged Out No longer eligi ble based on patient's age to complete this topic Goals Goal Patient Goal Type Associated Problems Recent Progress Patient-Stated? Author Increase physical activity Exercise On track(2021 5:16 PM CDT) Calista Riggs R.N. Note: Derrick will slowly work back up [...] Plan Autogenerated Problem No Fina Lopez R.N. Medical Devices Implanted Type Area Crusher Feeder Device Identifier Shelf Expiration Date Model / Serial / Lot Stnt Xnc De Rx 4.00x38 - [id number] Implanted:Qty : 1 on 05/27/2021 by Tong Rizzo M.D., Ph.D. at [facility] Cardiac Stent N/A: Coronary Cummings 06/13/2022 [id number] / / [id number] Description:RCA Stnt Sae De Rx 3.0x38 - [id number] Implanted:Qty : 1 on 12/08/2022 by Sage Curtis M.D. at [facility] Cardiac Stent Medtronic 09/03/2025 [id number] / / [id number] Clp Hrzn Ti 24 Clp Guero - [id number] Implanted:Qty : 1 on 05/30/2021 by Dia Schmitt M.D., M.P.H. at [facility] Hardware e.g. pins/screw s/rods N/A: [employer] [id number] / / Clp Hrzn Ti 24 Clp Sm Red - [id number] Implanted:Qty : 1 on 05/30/2021 by Dia Schmitt M.D., M.P.H. at [facility] Hardware e.g. pins/screw s/rods N/A: Chest [employer] [id number] / / Clp Hrzn Ti 24 Clp Sm Red - [id number] Implanted:Qty : 1 on 05/30/2021 by Dia Schmitt M.D., M.P.H. at [facility] Hardware e.g. pins/screw s/rods N/A: [employer] [id number] / / Clp Hrzn Ti 24 Clp Sm Red - [id number] Implanted:Qty : 1 on 05/30/2021 by Dia Schmitt M.D., M.P.H. at [facility] Hardware e.g. pins/screw s/rods N/A: [employer] [id number] 02/24/2026 [id number] / / [id number] Conversions - Default Historical Implant Device Implanted:05/2014 (Quantity not on file) Hip Implant Other/Legacy - See Implant Description Description:Body Location - Other. right hip left hip. Device Status Text - Hip Imp. Pat Trt Sym 39x11 - Sna - [id number] Implanted:Qty : 1 on 05/09/2024 by Sergio Montano M.D. at [facility] Knee Implant Left: Knee Sterling 01/24/2029 [id number]-[id number] 91 / NA / [id number] Tib Trt Ps X3 Sz7 11 - Sna - [id number] Implanted:Qty : 1 on 05/09/2024 by Sergio Montano M.D. at [facility] Knee Implant Left: Knee Sterling 12/05/2028 [id number]-[id number] 11-E / NA / [id number] Bsplt Tib Trt Sz7 56x80 - Sna - [id number] Implanted:Qty : 1 on 05/09/2024 by Sergio Montano M.D. at [facility] Knee Implant Left: Knee Sterling 02/20/2029 [id number] / NA / [id number] Kn Fem Trt Lt Pors Sz-6 - Sna - [id number] Implanted:Qty : 1 on 05/09/2024 by Sergio Montano M.D. at [facility] Knee Implant Left: Knee Sterling 03/03/2029 [id number]-F-6 01 / NA / [id number] Procedures Procedure Name Priority Date/Time Associated Diagnosis Comments HI ARTHCS ASP/INJ MJR JT WO US Routine 08/02/2024 3:15 PM CDT Primary Osteoarthritis Knee Right LIPID PANEL, S Routine 2024 10:40 AM CDT Atherosclerotic [facility] [place] Coronary Artery Without Angina Pectoris BASIC METABOLIC PANEL, S/P Routine 2024 10:40 AM CDT Atherosclerotic [facility] [place] Coronary Artery Without Angina Pectoris COLONOSCOPY Routine 04/22/2023 10:43 AM PHOTOGRAPHER APPRENTICE LITHOGRAPHIC Diarrhea from Last 3 Months or Most Recently Relevant to Health Maintenance Results * HI ARTHCS ASP/INJ MJR JT WO US (08/02/2024 3:15 PM CDT) Narrative MMODAL - 08/02/2024 3:15 PM CDT Sergio Montano M.D. 08/07/2024 9:04 AM Knee site- R knee joint : injection only Performed by: Sergio Montano M.D. Authorized by: Sergio Montano M.D. PROCEDURE DETAILS Indications: Right knee pain Procedure Location knee Knee site: R knee joint Site prep: patient was prepped and draped in usual sterile fashion Procedural approach: anterolateral Procedure performed: injection only Needle gauge: 22 G Procedural Medication The following medications were administered at the target site(s) Local anesthetic: 5 mL lidocaine 10 mg/mL (1 %) Corticosteroid: 60 mg triamcinolone acetonide 40 mg/mL CONSENT Consent obtained: written (Risks, benefits and alternatives were discussed and a written Informed Consent was obtained. Please see Informed Consent form for further details.) PRE-PROCEDURE DETAILS Procedure purpose: therapeutic and diagnostic Indications: Right knee pain Site preparation: chlorhexidine SEDATION / ANESTHESIA Anesthesia method: none POST-PROCEDURE DETAILS Procedure completed successfully: yes Complications: no apparent complications Post-procedure instructions: avoid strenuous activity for 5 days Discharge instructions: dressing care and follow-up with ordering provider us Sergio Montano M.D. PROCEDURE/MINOR SURGICAL O RDERABLES Final Result [facility]ODAL NA * Lipid Panel (2024 10:40 AM CDT) Triglycerides 139 mg/dL 2024 11:02 AM CDT CNFL Comment: ----REFERENCE VALUE---- Normal: <150 mg/dL Borderline High: 150-199 mg/dL High: 200-499 mg/dL Very High: > or =500 mg/dL Cholesterol, Total 150 mg/dL 2024 11:02 AM CDT CNFL Comment: ----REFERENCE VALUE---- Desirable: < 200 mg/dL Borderline High: 200 - 239 mg/dL High: > or = 240 mg/dL Cholesterol, LDL, Calculated 47 mg/dL 2024 11:02 AM CDT CNFL Comment: ----REFERENCE VALUE---- Desirable: <100 mg/dL Above Desirable: 100-129 mg/dL Borderline High: 130-159 mg/dL High: 160-189 mg/dL Very High: >=190 mg/dL ----ADDITIONAL INFORMATION---- LDL cholesterol calculated using the Morton/NIH equation. Cholesterol, HDL 80 >=40 mg/dL 06/24/19 11:02 AM CDT CNFL Cholesterol, Non-HDL, Calculated 70 mg/dL 2024 11:02 AM CDT CNFL Comment: ----REFERENCE VALUE---- Desirable: <130 mg/dL Above Desirable: 130-159 mg/dL Borderline High: 160-189 mg/dL High: 190-219 mg/dL Very High: > or =220 mg/dL Fasting (8 HR or more) No 2024 10:40 AM CDT CNFL Blood (Blood, Venous) 2024 10:40 AM CDT 2024 10:43 AM CDT us Marielle Solorio M.D. LAB BLOOD ADD-ON Final Result Performing Organization Address City/State/[facility] Co de Phone Number [facility] [address] [place] [phone], [facility] CNFL [facility] in [address] [address] * (ABNORMAL) Basic Metabolic Panel (2024 10:40 AM CDT) Potassium, P 3.5(L) 3.6 - 5.2 mmol/L 2024 11:02 AM CDT CNFL Sodium, P 137 135 - 145 mmol/L 2024 11:02 AM CDT CNFL Chloride, P 101 98 - 107 mmol/L 2024 11:02 AM CDT CNFL Bicarbonate, P 24 22 - 29 mmol/L 2024 11:02 AM CDT CNFL Anion Gap, P 12 7 - 15 2024 11:02 AM CDT CNFL BUN (Blood Urea Nitrogen), P 15 8 - 24 mg/dL 2024 11:02 AM CDT CNFL Creatinine 0.80 0.74 - 1.35 mg/dL 2024 11:02 AM CDT CNFL Estimated GFR (eGFR) >90 >=60 mL/min/BSA 2024 11:02 AM CDT CNFL Comment: Estimated GFR calculated using the 2020 CKD_EPI creatinine equation. Calcium, Total, P 9.2 8.8 - 10.2 mg/dL 2024 11:02 AM CDT CNFL Glucose, P 112 70 - 140 mg/dL 2024 11:02 AM CDT CNFL Blood (Blood, Venous) 2024 10:40 AM CDT 2024 10:43 AM CDT us Marielle Solorio M.D. LAB BLOOD ADD-ON Final Result [facility] [id number] [place] [address] [address] [place] [address], [place] CNFL [facility] in [place] [id number] [place] [address] [address] [place] [address] from Last 3 Months or Most Recently Relevant to Health Maintenance Additional Health Concerns Active Problems Noted Date Diagnosed Date Autogenerated Problem 09/02/2024 Insurance [employer] Advance Directives For more information, please contact: [phone] Documents on File Type Date Recorded Patient Wood Inspector Expl anation Advance Directives 07/25/2024 3:14 PM Advance Directives 07/14/2024 8:13 AM Amelie Patel HCPOA/ADVOCATE/AGENT/R EPRESENTATIVE/SURROGAT E Advance Directives 01/13/2023 9:[address]/MOLST * Full Code (Latest Code Status on File) Date Activated Date Inactivated Comments 05/09/2024 12:39 PM 05/11/2024 6:43 PM Question Answer Comments Full Code: Not Discussed Due to: Patient not available * Full Code Date Activated Date Inactivated Comments 01/02/2023 8:48 PM 01/09/2023 1:55 PM Question Answer Comments Full Code: Discussed * Full Code Date Activated Date Inactivated Comments 01/02/2023 8:14 PM 01/02/2023 8:48 PM Question Answer Comments Full Code: Not Discussed Due to: Patient not available * Full Code Date Activated Date Inactivated Comments 12/14/2022 4:40 PM 01/02/2023 3:53 PM Question Answer Comments Full Code: Not Discussed Due to: Patient not available * Full Code Date Activated Date Inactivated Comments 12/07/2022 7:07 AM 12/10/2022 3:00 PM Question Answer Comments Full Code: Discussed Healthcare Agents on File Name Relationship Healthcare Agent Relationship Communication Alyson Patel Sister Health Care Agent Amelie Mireles Sister First Alternat e Health Care Agent [email or web address]. [employer] Care Teams Health Concierge Relationship Specialty Start Date End Date Marielle Alcocer M.D. [address] [place] [phone] PCP - General Family Medicine 09/10/23
--- OUTSIDE RECORDS SUMMARY | 2024-10-17 20:24 | XMS_ITS | Encounter Summary ---
Author Organization [facility] Address [address] [place] [address] Care Team Providers Care Edger Runner Name Role Phone Marielle Alcocer M.D. Primary Care Pro vider Reason for Visit * Reason Onset Date Comments Rx PA not Needed 09/13/2024 Farxiga 10 mg Encounter Details Date Type Department Care Team (Latest Contact Info) Description 09/13/2024 Clinical Communication Pharmacy Prior Auth RO [phone] Elaine Peres Rx PA not Needed (Farxiga 10 mg ) Social History Tobacco Use Types Packs/Day Years Used Date Smoking Tobacco: Former Cigarettes 0.5 32.8 0 06/22/1995 - 12/14/2022 Passive Smoke Exposure: Never Smokeless Tobacco: Never Comments:11/2022 - Plans to s lenny quit. Alcohol Use Standard Drinks/Week Comments Not Currently 0 (1 standard drink = 0.6 oz pure alcohol) daily before hospital stay (01/02/2023) [facility] Utilities Answer Date Recorded In the past 12 months has e [employer], gas, oil, or water [employer] threatened to shut off services in your [...] your living situation today? I have a [facility] place to live 06/15/2024 Education Answer Date Recorded What is the highest level of school you have completed or the highest degree you have received? Bachelor's degree (e.g., BA, AB, BS) 12/02/2018 Sex and Gender Information Value Date Recorded Sex Assigned at Male 05/17/2021 7:04 AM NANOTECHNICIAN Legal Sex Male 11:46 PM NANOTECHNICIAN Gender Identity Male 05/17/2021 7:04 AM NANOTECHNICIAN Sexual Orientation Straight 05/17/2021 7: 04 AM NANOTECHNICIAN documented as of this encounter Miscellaneous Notes * Telephone Encounter - Elaine Peres - 09/13/2024 8:50 AM CDT closed documented in this encounter Plan of Treatment Upcoming Encounters Date Type Department Care Team (Late st Contact Info) Description 11/03/2024 11:40 AM CDT Office Visit Department of Family Medicine, [facility], in [address] [phone] Marielle Alcocer M.D. [address] [place] [phone] Scheduled Procedures Name Priority Associated Diagnoses Date/Ti me ROBOTIC-ASSISTED KNEE TOTAL ARTHROPLASTY Primary Osteoarthritis Knee Right documented as of this encounter Goals Goal Patient Goal Type Associated Problems Recent Progress Patient-Stated? Author Increase physical activity Exercise On track(2021 5:16 PM CDT) No Calista Jorge R.N. Note: Derrick will slowly work back [...] Total Score: 2 04/22/19 25 10:10 AM NANOTECHNICIAN documented as of this encounter Care Teams Edger Runner Relationship Specialty Start Date End Date Marielle Alcocer M.D. [address] [phone] PCP - General Family Medicine 09/10/23 documented as of this encounter
--- OUTSIDE RECORDS SUMMARY | 2024-10-17 20:24 | XMS_ITS | Encounter Summary ---
Author Organization [facility] Address [address] [place] [address] Care Team Providers Care Boilermaker Pipe Fitter Name Role Phone Marielle Alcocer M.D. Primary Care Pro vider Reason for Visit * Reason Onset Date Comments Med Refill 09/07/2024 Encounter Details Date Type Department Care Team (Late st Contact Info) Description 09/07/2024 Refill Department of Family Medicine, [facility], in [address] [phone] Marielle Alcocer M.D. [address] [place] [phone] Med Refill Social History Tobacco Use Types Packs/Day Years Used Date Smoking Tobacco: Former Cigarettes 0.5 32.8 0 06/22/1995 - 12/14/2022 Passive Smoke Exposure: Never Smokeless Tobacco: Never Comments:11/2022 - Plans to s lenny quit. Alcohol Use Standard Drinks/Week Comments Not Currently 0 (1 standard drink = 0.6 oz pure alcohol) daily before hospital stay (01/02/2023) [facility] Utilities Answer Date Recorded In the past 12 months has [employer], gas, oil, or water company threatened to [...] your living situation today? I have a [facility] place to live 06/15/2024 Education Answer Date Recorded What is the highest level of school you have completed or the highest degree you have received? Bachelor's degree (e.g., BA, AB, BS) 12/02/2018 Sex and Gender Information Value Date Recorded Sex Assigned at Male 05/17/2021 7:[address] REPORTER Legal Sex Male 11:[address] REPORTER Gender Identity Male 05/17/2021 7:[address] REPORTER Sexual Orientation Straight 05/17/2021 7: [address] REPORTER documented as of this encounter Plan of Treatment Upcoming Encounters Date Type Department Care Team (Late st Contact Info) Description 11/03/2024 11:40 AM CDT Office Visit Department of Family Medicine, [facility], in [address] [phone] Marielle Alcocer M.D. [address] [place] [phone] Scheduled Procedures Name Priority Associated Diagnoses Date/Ti [...] Total Score: 2 04/22/19 25 10:[address] REPORTER documented as of this encounter Care Teams Boilermaker Pipe Fitter Relationship Specialty Start Date End Date Leung Marielle Solorio M.D. [address] [phone] PCP - General Family Medicine 09/10/23 documented as of this encounter
--- OUTSIDE RECORDS SUMMARY | 2024-10-17 20:24 | XMS_ITS | Encounter Summary ---
Author Organization [facility] Address [address] [place] [address] Care Team Providers Care Public Address Announcer Name Role Phone Marielle Alcocer M.D. Primary Care Pro vider Reason for Visit * Reason Comments Med Refill Encounter Details Date Type Department Care Team (Late st Contact Info) Description 09/06/2024 Refill [facility] in [facility] [address] [place] [phone] Marielle King, BRENT, C.N.P., D.N.P. [address] [place] [phone] Med Refill Social History Tobacco Use Types Packs/Day Years Used Date Smoking Tobacco: Former Cigarettes 0.5 32.8 0 06/22/1995 - 12/14/2022 Passive Smoke Exposure: Never Smokeless Tobacco: Never Comments:11/2022 - Plans to s lenny quit. Alcohol Use Standard Drinks/Week Comments Not Currently 0 (1 standard drink = 0.6 oz pure alcohol) daily before hospital stay (01/02/2023) [facility] Utilities Answer Date Recorded In the past 12 months has [employer], gas, oil, or water company threatened [...] your living situation today? I have a [facility] place to live 06/15/2024 Education Answer Date Recorded What is the highest level of school you have completed or the highest degree you have received? Bachelor's degree (e.g., BA, AB, BS) 12/02/2018 Sex and Gender Information Value Date Recorded Sex Assigned at Male 05/17/2021 7:04 AM TAX REPRESENTATIVE Legal Sex Male 11:46 PM TAX REPRESENTATIVE Gender Identity Male 05/17/2021 7:04 AM TAX REPRESENTATIVE Sexual Orientation Straight 05/17/2021 7: 04 AM TAX REPRESENTATIVE documented as of this encounter Plan of Treatment Upcoming Encounters Date Type Department Care Team (Late st Contact Info) Description 11/03/2024 11:40 AM CDT Office Visit Department of Family Medicine, [facility], in [address] [phone] Marielle Alcocer M.D. [address] [place] [phone] Scheduled Procedures Name Priority Associated Diagnoses Date/Ti [...] Total Score: 2 04/22/19 25 10:10 AM TAX REPRESENTATIVE documented as of this encounter Care Teams Public Address Announcer Relationship Specialty Start Date End Date Marielle Alcocer M.D. [phone] [phone] PCP - General Family Medicine 09/10/23 documented as of this encounter
--- OUTSIDE RECORDS SUMMARY | 2024-10-17 20:24 | XMS_ITS | Encounter Summary ---
Author Organization [facility] Address [address] [place] [address] Care Team Providers Care Raftsman Name Role Phone Marielle Alcocer M.D. Primary Care Pro vider Reason for Visit * Reason Onset Date Comments Panda[employer] Form 10/05/2024 [facility] dent al clearance + OV Encounter Details Date Type Department Care Team (Latest Contact Info) Description 10/05/2024 Clinical Communication Department of Family Medicine, [facility], in [address] [phone] Marielle Alcocer M.D. [address] [place] [phone] [employer] Form ([facility] dental clearance + OV) Social History Tobacco Use Types Packs/Day Years Used Date Smoking Tobacco: Former Cigarettes 0.5 32.8 0 06/22/1995 - 12/14/2022 Passive Smoke Exposure: Never Smokeless Tobacco: Never Comments:11/2022 - Plans to s lenny quit. Alcohol Use Standard Drinks/Week Comments Not Currently 0 (1 standard drink = 0.6 oz pure alcohol) daily before hospital stay (01/02/2023) [facility] Utilities Answer Date Recorded In the past 12 months has [employer] gas, oil, or water [employer] threatened to shut off services in your [...] your living situation today? I have a [facility] place to live 06/15/2024 Education Answer Date Recorded What is the highest level of school you have completed or the highest degree you have received? Bachelor's degree (e.g., BA, AB, BS) 12/02/2018 Sex and Gender Information Value Date Recorded Sex Assigned at Male 05/17/2021 7:04 AM STONER HAND Legal Sex Male 11:46 PM STONER HAND Gender Identity Male 05/17/2021 7:04 AM STONER HAND Sexual Orientation Straight 05/17/2021 7: 04 AM STONER HAND documented as of this encounter Miscellaneous Notes * Telephone Encounter - Kiki Lanza - 10/05/2024 9:22 AM CDT Form was routed to Dr. Madhu Solorio for electronic review/signature. ACCESS ASSOC: [employer] PHONE NUMBER: INFO REQUESTED: dental clearance + OV INSTRUCTIONS: Fax when complete documented in this encounter Plan of Treatment Upcoming Encounters Date Type Department Care Team (Late st Contact Info) Description 11/03/2024 11:40 AM CDT Office Visit Department of Family Medicine, [facility], in [address] [phone] Marielle Alcocer M.D. [address] [place] [phone] Scheduled Procedures Name Priority Associated Diagnoses Date/Ti ma ROBOTIC-ASSISTED KNEE TOTAL ARTHROPLASTY Primary Osteoarthritis Knee [...] Failure General On track(2021 5:16 PM CDT) Calista Riggs REyalN. Note: [...] Total Score: 2 04/22/19 25 10:10 AM STONER HAND documented as of this encounter Care Teams Raftsman Relationship Specialty Start Date End Date Marielle Alcocer M.D. [address] [phone] PCP - General Family Medicine 09/10/23 documented as of this encounter
--- OUTSIDE RECORDS SUMMARY | 2024-10-17 20:24 | XMS_ITS | Encounter Summary ---
Author Organization [facility] Address [address] [place] [address] Care Team Providers Care Sewing Department Supervisor Name Role Phone Marielle Alcocer M.D. Primary Care Pro vider Reason for Referral * Medication Prior Authorization - Closed Specialty Diagnoses / Procedures Referred By Contmichelle t Referred To Contact Diagnoses Cardiomyopathy Ischemic Mikhail Ko M.D. [address] [place] [phone] Phone: tel: fax: Referral ID Status Reason Start Date Expiration Date Visits Re quested Visits Authorized [id number] Closed 1 1 Reason for Visit * Reason Onset Date Comments Med Refill 09/05/2024 Encounter Details Date Type Department Care Team (Late st Contact Info) Description 09/05/2024 Refill Department of Family Medicine, [facility], in [address] [phone] Marielle Alcocer M.D. [address] [place] [phone] Med Refill Social History Tobacco Use Types Packs/Day Years Used Date Smoking Tobacco: Former Cigarettes 0.5 32.8 0 06/22/1995 - 12/14/2022 Passive Smoke Exposure: Never Smokeless Tobacco: Never Comments:11/2022 - Plans to s lenny quit. Alcohol Use Standard Drinks/Week Comments Not Currently 0 (1 standard drink = 0.6 oz pure alcohol) daily before hospital stay (01/02/2023) [facility] Utilities Answer Date Recorded In the past 12 months has [employer], gas, oil, or water [employer] threatened to shut off services in your [...] your living situation today? I have a [facility] place to live 06/15/2024 Education Answer Date Recorded What is the highest level of school you have completed or the highest degree you have received? Bachelor's degree (e.g., BA, AB, BS) 12/02/2018 Sex and Gender Information Value Date Recorded Sex Assigned at Male 05/17/2021 7:04 AM SPECIAL DIET COOK Legal Sex Male 11:46 PM SPECIAL DIET COOK Gender Identity Male 05/17/2021 7:04 AM SPECIAL DIET COOK Sexual Orientation Straight 05/17/2021 7: 04 AM SPECIAL DIET COOK documented as of this encounter Plan of Treatment Upcoming Encounters Date Type Department Care Team (Late st Contact Info) Description 11/03/2024 11:40 AM CDT Office Visit Department of Family Medicine, [facility], in [address] [phone] Marielle Alcocer M.D. [address] [place] [phone] Scheduled Procedures Name Priority Associated Diagnoses Date/Ti [...] documented in this encounter Additional Health Concerns Active Problems Noted Date Diagnosed Date Autogenerated Problem 09/02/2024 Assessment Noted Time PHQ-9 Depression Total Score: 2 04/22/19 25 10:10 AM SPECIAL DIET COOK documented as of this encounter Care Teams Sewing Department Supervisor Relationship Specialty Start Date End Date Marielle Alcocer M.D. [address] [phone] PCP - General Family Medicine 09/10/23 documented as of this encounter
--- OUTSIDE RECORDS SUMMARY | 2024-10-17 20:24 | XMS_ITS | Encounter Summary ---
Author Organization [facility] Address [address] [place] [address] Care Team Providers Care Night Warehouse Manager Name Role Phone Marielle Alcocer M.D. Primary Care Pro vider Reason for Visit * Reason Comments Med Refill Encounter Details Date Type Department Care Team (Late st Contact Info) Description 09/05/2024 Refill Senior Services in [facility] [address] [place] [phone] Marielle King, BRENT, C.N.P., D.N.P. [address] [place] [phone] Med Refill Social History Tobacco Use Types Packs/Day Years Used Date Smoking Tobacco: Former Cigarettes 0.5 32.8 0 06/22/1995 - 12/14/2022 Passive Smoke Exposure: Never Smokeless Tobacco: Never Comments:11/2022 - Plans to s lenny quit. Alcohol Use Standard Drinks/Week Comments Not Currently 0 (1 standard drink = 0.6 oz pure alcohol) daily before hospital stay (01/02/2023) [facility] Utilities Answer Date Recorded In the past 12 months has [employer], gas, oil, or water company threatened [...] your living situation today? I have a [facility] place to live 06/15/2024 Education Answer Date Recorded What is the highest level of school you have completed or the highest degree you have received? Bachelor's degree (e.g., BA, AB, BS) 12/02/2018 Sex and Gender Information Value Date Recorded Sex Assigned at Male 05/17/2021 7:04 AM RETAIL COSMETICS SALES COUNTER MANAGER Legal Sex Male 11:46 PM RETAIL COSMETICS SALES COUNTER MANAGER Gender Identity Male 05/17/2021 7:04 AM RETAIL COSMETICS SALES COUNTER MANAGER Sexual Orientation Straight 05/17/2021 7: 04 AM RETAIL COSMETICS SALES COUNTER MANAGER documented as of this encounter Plan of Treatment Upcoming Encounters Date Type Department Care Team (Late st Contact Info) Description 11/03/2024 11:40 AM CDT Office Visit Department of Family Medicine, [facility], in [address] [phone] Marielle Alcocer M.D. [address] [place] [phone] Scheduled Procedures Name Priority Associated Diagnoses [...] Total Score: 2 04/22/19 25 10:10 AM RETAIL COSMETICS SALES COUNTER MANAGER documented as of this encounter Care Teams Night Warehouse Manager Relationship Specialty Start Date End Date Marielle Alcocer M.D. [address] [phone] PCP - General Family Medicine 09/10/23 documented as of this encounter
--- OUTSIDE RECORDS SUMMARY | 2024-10-17 20:24 | XMS_ITS | Encounter Summary ---
Author Organization [facility] Address [address] [place] [address] Care Team Providers Care Excelsior Machine Tender Name Role Phone Marielle Alcocer M.D. Primary Care Pro vider Reason for Visit * Reason Comments Med Refill Encounter Details Date Type Department Care Team (Late st Contact Info) Description 09/03/2024 Refill Senior Services in [facility] [address] [place] [phone] Marielle King, BRENT, C.N.P., D.N.P. [address] [place] [phone] Med Refill Social History Tobacco Use Types Packs/Day Years Used Date Smoking Tobacco: Former Cigarettes 0.5 32.8 0 06/22/1995 - 12/14/2022 Passive Smoke Exposure: Never Smokeless Tobacco: Never Comments:11/2022 - Plans to s lenny quit. Alcohol Use Standard Drinks/Week Comments Not Currently 0 (1 standard drink = 0.6 oz pure alcohol) daily before hospital stay (01/02/2023) [facility] Utilities Answer Date Recorded In the past 12 months has [employer] electric, gas, oil, or water company threatened [...] Sex Assigned at Male 05/17/2021 7:04 AM COMMERCIAL ACCOUNT MANAGER Legal Sex Male 11:46 PM COMMERCIAL ACCOUNT MANAGER Gender Identity Male 05/17/2021 7:04 AM COMMERCIAL ACCOUNT MANAGER Sexual Orientation Straight 05/17/2021 7: 04 AM COMMERCIAL ACCOUNT MANAGER documented as of this encounter Plan of Treatment Upcoming Encounters Date Type Department Care Team (Late st Contact Info) Description 11/03/2024 11:40 AM CDT Office Visit Department of Family Medicine, [facility], in [place] [phone] Marielle Alcocer M.D. [address] [place] [phone] Scheduled Procedures Name Priority Associated Diagnoses [...] Total Score: 2 04/22/19 25 10:10 AM COMMERCIAL ACCOUNT MANAGER documented as of this encounter Care Teams Excelsior Machine Tender Relationship Specialty Start Date End Date Marilele Alcocer M.D. [address] [phone] PCP - General Family Medicine 09/10/23 documented as of this encounter
[2024-10-17 20:25] LABS: INR 0.99 (0.91-1.10); Prothrombin Time 13.9 Seconds
[2024-10-17 20:26] LABS: Alanine Aminotransferase* 30 U/L (4-50); Anion Gap 13 mEq/L (7-15); Aspartate Amino Transferase* 32 U/L (12-35); Blood Urea Nitrogen* 33 mg/dL (7-30); Carbon Dioxide* 19 mmol/L (20-32); Creatinine* 1.3 mg/dL (0.5-1.5); Est. Creatinine Clearance* 63.84; Estimated Glomerular Filt Rate 62 ml/min; Total Protein* 6.9 g/dL (6.0-8.3)
[2024-10-17 20:27] LABS: Alkaline Phosphatase* 79 U/L (40-150); Bilirubin Direct* 0.1 mg/dL (0.0-0.5); Bilirubin Total* 0.5 mg/dL (0.1-1.5); Calcium* 8.9 mg/dL (8.4-10.6); Ethanol* 0.25 % (0.01-0.03); Glucose* 94 mg/dL (60-115)
[2024-10-17] MEDS: LIDOCAINE 1%-EPI 1:100,000 3 ML INFILTRATI (20:46)
[2024-10-18 03:51] VITALS: PULSE 68; RESP 20; O2SAT 93
[2024-10-18 04:01] VITALS: BP 130/70; PULSE 70; RESP 21; O2SAT 92
[2024-10-18 05:01] VITALS: BP 124/74; PULSE 67; O2SAT 92
[2024-10-18 06:02] VITALS: BP 118/76; PULSE 73; RESP 20; O2SAT 97
== END 2024-10-18 07:12 | disposition home or self-care (01) ==
PROVIDERS: Emergency Provider Emergency Medicine
DX: S01.81XA Laceration without foreign body of other part of head, initial encounter (principal); F10.129 Alcohol abuse with intoxication, unspecified; R00.0 Tachycardia, unspecified; W18.39XA Other fall on same level, initial encounter; Z79.02 Long term (current) use of antithrombotics/antiplatelets
CPT/HCPCS: 12011; 36415; 70450; 72125; 80048; 80076; 82077; 83735; 85025; 85610; 93005; 94761; 99284; 99285; 99291; G0390; J7030

== ENCOUNTER 2024-11-15 21:05 | Outpatient (CLI) | payer OTHER, SELFPAY | END 2024-11-15 21:06 | disposition home or self-care (01) | LOC: AMB 11-17 14:06 | PROVIDERS: Visit Provider Family Medicine | DX: S09.90XA Unspecified injury of head, initial encounter (principal); W19.XXXA Unspecified fall, initial encounter; Y92.039 Unspecified place in apartment as the place of occurrence of the external cause | CPT/HCPCS: A0425; A0427; A0433 ==

== ENCOUNTER 2024-11-15 21:35 | Emergency (ER) | payer OTHER, SELFPAY ==
[2024-11-15] VITALS (20 sets, daily range): BP systolic 92–118; BP diastolic 49–91; PULSE 64–87; RESP 13–24; TEMP 36.1–36.2; O2SAT 87–98; BMI 40.0
--- OUTSIDE RECORDS SUMMARY | 2024-11-15 21:38 | XMS_ITS | Encounter Summary ---
Author Organization [facility] Address [address] [place] [address] Care Team Providers Care Regulatory Analyst Name Role Phone Marielle Alcocer M.D. Primary Care Pro vider Reason for Visit * Reason Onset Date Comments PandaDoc Form 10/05/2024 [facility] dent al clearance + OV Encounter Details Date Type Department Care Team (Latest Contact Info) Description 10/05/2024 Clinical Communication Department of Family Medicine, [facility], in [address] [phone] Marielle Alcocer M.D. [address] [place] [phone] Panda[employer] Form ([facility] dental clearance + OV) Social History Tobacco Use Types Packs/Day Years Used Date Smoking Tobacco: Former Cigarettes 0.5 32.8 0 06/22/1995 - 12/14/2022 Passive Smoke Exposure: Never Smokeless Tobacco: Never Comments:11/2022 - Plans to s lenny quit. Alcohol Use Standard Drinks/Week Comments Not Currently 0 (1 standard drink = 0.6 oz pure alcohol) daily before hospital stay (01/02/2023) [facility] Utilities Answer Date Recorded In the past 12 months has [employer] gas, oil, or water [employer] threatened to shut off services in your [...] your living situation today? I have a [facility] place to live 06/15/2024 Education Answer Date Recorded What is the highest level of school you have completed or the highest degree you have received? Bachelor's degree (e.g., BA, AB, BS) 12/02/2018 Sex and Gender Information Value Date Recorded Sex Assigned at Male 05/17/2021 7:04 AM OFFICE EMPLOYEE Legal Sex Male 11:46 PM OFFICE EMPLOYEE Gender Identity Male 05/17/2021 7:04 AM OFFICE EMPLOYEE Sexual Orientation Straight 05/17/2021 7: 04 AM OFFICE EMPLOYEE documented as of this encounter Miscellaneous Notes * Telephone Encounter - Kiki Lanza - 10/18/2024 9:32 AM CDT Form has been faxed back to the facility, copy sent to HIM. * Telephone Encounter - Kiki Lanza - 10/05/2024 9:22 AM CDT Form was routed to Dr. Madhu Solorio for electronic review/signature. ACTUARIAL TRAINEE: [place] PHONE NUMBER: INFO REQUESTED: dental clearance + OV INSTRUCTIONS: Fax when complete documented in this encounter Plan of Treatment Upcoming Encounters Date Type Department Care Team (Late st Contact Info) Description 12/09/2024 9:20 AM CDT Office Visit Department of Family Medicine, [facility], in [address] [phone] Marielle Alcocer M.D. [address] [place] [phone] Scheduled Procedures Name Priority Associated Diagnoses Date/Ti [...] 5:16 PM CDT) Calista Riggs R.N. Note: -Eat a well balanced diet [...] Total Score: 2 04/22/19 25 10:10 AM OFFICE EMPLOYEE documented as of this encounter Care Teams Regulatory Analyst Relationship Specialty Start Date End Date Leung Marielle Solorio M.D. [address] [place] [phone] PCP - General Family Medicine 09/10/23 documented as of this encounter
--- OUTSIDE RECORDS SUMMARY | 2024-11-15 21:38 | XMS_ITS | Encounter Summary ---
Author Organization [facility] Address [address] [place] [address] Care Team Providers Care Wordpress Developer Name Role Phone Marielle Alcocer M.D. Primary Care Pro vider Reason for Visit * Reason Onset Date Comments Med Refill 10/18/2024 Encounter Details Date Type Department Care Team (Late st Contact Info) Description 10/18/2024 Refill Department of Family Medicine, [facility], in [address] [phone] Marielle Alcocer M.D. [address] [place] [phone] Med Refill Social History Tobacco Use Types Packs/Day Years Used Date Smoking Tobacco: Former Cigarettes 0.5 32.8 0 06/22/1995 - 12/14/2022 Passive Smoke Exposure: Never Smokeless Tobacco: Never Comments:11/2022 - Plans to s lenny quit. Alcohol Use Standard Drinks/Week Comments Not Currently 0 (1 standard drink = 0.6 oz pure alcohol) daily before hospital stay (01/02/2023) [facility] Utilities Answer Date Recorded In the past 12 months has [employer], gas, oil, or water company threatened to [...] your living situation today? I have a [facility] place to live 06/15/2024 Education Answer Date Recorded What is the highest level of school you have completed or the highest degree you have received? Bachelor's degree (e.g., BA, AB, BS) 12/02/2018 Sex and Gender Information Value Date Recorded Sex Assigned at Male 05/17/2021 7:04 AM SENIOR SQL DATABASE DEVELOPER Legal Sex Male 11:46 PM SENIOR SQL DATABASE DEVELOPER Gender Identity Male 05/17/2021 7:04 AM SENIOR SQL DATABASE DEVELOPER Sexual Orientation Straight 05/17/2021 7: 04 AM SENIOR SQL DATABASE DEVELOPER documented as of this encounter Plan of Treatment Upcoming Encounters Date Type Department Care Team (Late st Contact Info) Description 12/09/2024 9:20 AM CDT Office Visit Department of Family Medicine, [facility], in [address] [phone] Marielle Alcocer M.D. [address] [place] [phone] Scheduled Procedures Name Priority Associated Diagnoses Date/Ti [...] as of this encounter Visit Diagnoses Diagnosis Chronic Systolic (Congestive) Heart Failure (HCC) documented in this encounter Additional Health Concerns Active Problems Noted Date Diagnosed Date Autogenerated Problem 09/02/2024 Assessment Noted Time PHQ-9 Depression Total Score: 2 04/22/19 25 10:10 AM SENIOR SQL DATABASE DEVELOPER documented as of this encounter Care Teams Wordpress Developer Relationship Specialty Start Date End Date Marielle Alcocer M.D. [address] [phone] PCP - General Family Medicine 09/10/23 documented as of this encounter
--- OUTSIDE RECORDS SUMMARY | 2024-11-15 21:38 | XMS_ITS | Encounter Summary ---
Author Organization [facility] Address [address] [place] [address] Care Team Providers Care Electric Powerline Examiner Name Role Phone Marielle Alcocer M.D. Primary Care Pro vider Reason for Visit * Reason Comments Med Refill Encounter Details Date Type Department Care Team (Late st Contact Info) Description 08/31/2024 Refill Senior Services in [facility] [address] [place] [phone] Marielle King, BRENT, C.N.P., D.N.P. [address] [place] [phone] Med Refill Social History Tobacco Use Types Packs/Day Years Used Date Smoking Tobacco: Former Cigarettes 0.5 32.8 0 06/22/1995 - 12/14/2022 Passive Smoke Exposure: Never Smokeless Tobacco: Never Comments:11/2022 - Plans to s lenny quit. Alcohol Use Standard Drinks/Week Comments Not Currently 0 (1 standard drink = 0.6 oz pure alcohol) daily before hospital stay (01/02/2023) [facility] Utilities Answer Date Recorded In the past 12 months has [employer] electric, gas, oil, or water company threatened [...] your living situation today? I have a [facility] place to live 06/15/2024 Education Answer Date Recorded What is the highest level of school you have completed or the highest degree you have received? Bachelor's degree (e.g., BA, AB, BS) 12/02/2018 Sex and Gender Information Value Date Recorded Sex Assigned at Male 05/17/2021 7:04 AM MAINFRAME PROGRAMMER ANALYST Legal Sex Male 11:46 PM MAINFRAME PROGRAMMER ANALYST Gender Identity Male 05/17/2021 7:04 AM MAINFRAME PROGRAMMER ANALYST Sexual Orientation Straight 05/17/2021 7: 04 AM MAINFRAME PROGRAMMER ANALYST documented as of this encounter Plan of Treatment Upcoming Encounters Date Type Department Care Team (Late st Contact Info) Description 12/09/2024 9:20 AM CDT Office Visit Department of Family Medicine, [facility], in [address] [place] [phone] Leung Marielle Solorio M.D. [address] [place] [phone] Scheduled Procedures Name Priority Associated Diagnoses Date/Ti [...] Total Score: 2 04/22/19 25 10:10 AM MAINFRAME PROGRAMMER ANALYST documented as of this encounter Care Teams Electric Powerline Examiner Relationship Specialty Start Date End Date Marielle Alcocer M.D. [address] [place], [place] [address]mar[place] [phone] PCP - General Family Medicine 09/10/23 documented as of this encounter
--- OUTSIDE RECORDS SUMMARY | 2024-11-15 21:38 | XMS_ITS ---
Author Organization [facility] Care Team Providers Care Restaurant Management Internship Name Role Phone Shemar Chatterjee Unavailable Unavailable Allergies and adverse reactions No Known Allergies Care Team Name Role Address Phone Organization Dates Shemar Chatterjee PCP [facility] [address] [place], [address], [place] (Office): : [facility] 01/09/2023 - 09/17/2023 Immunizations Immunization Status Vaccine Details Vaccine Code CodeSystem Date Notes Hepatitis B completed hepatitis B vaccine, adult dosage 43 CVX created date: 01/08/2023 administer ed date: 02/20/2022 TB 2 Step Mantoux Skin Test completed tuberculin skin test; unspecified formulation lotNumber: [id number] expiry: 02/20/2026 Mfg: NDC Given 0.1 ml Left Forearm intradermally Step 1 of Multi-step 98 CVX created date: 01/23/2023 consent date: 01/23/2023 administer ed date: 01/23/2023 TB 2 Step Mantoux Skin Test completed tuberculin skin test; unspecified formulation lotNumber: [id number] expiry: 01/11/2023 Mfg: Par Pharmacetical Given 0.1 [...] completed Pneumococcal conjugate vaccine 20-valent (PCV20), polysaccharide [id number] conjugate, adjuvant, preservative free lotNumber: [id number] expiry: 08/20/2024 Mfg: PFIZER Given 0.5 ml Left Deltoid intramuscularly 216 CVX created date: 05/22/2023 consent date: 05/22/2023 administer ed date: 07/01/2023 Educated by Yanely TAI 08/01/22 on 05/14/2023 2nd Booster [facility] completed SARS-COV-2 (COVID-19) vaccine, mRNA, [...] 01/08/2023 administer ed date: 01/16/2022 [employer] Covid [id number] Formula completed SARS-COV-2 (COVID-19) vaccine, mRNA, spike protein, LNP, preservative free, 50 mcg/0.5 mL dose lotNumber: [id number] expiry: 02/03/2023 Mfg: Moderna Given 0.5 ml [...] CodeSystem Concern Status 1 DIARRHEA, UNSPECIFIED 02/18/[address] active 2 ANKYLOSING HYPEROSTOSIS [FORESTIER], SITE UNSPECIFIED 01/10/[address] active 3 BODY MASS INDEX [BMI]40.0-44.9, ADULT 01/10/[address] active 4 CERVICALGIA 01/10/[address] active 5 CHEST PAIN, UNSPECIFIED 01/10/[address] active 6 CHRONIC SYSTOLIC (CONGESTIVE) HEART FAILURE 01/10/[address] active 7 HYPERLIPIDEMIA, UNSPECIFIED 01/10/[address] active 8 HYPERTENSIVE HEART DISEASE WITH HEART FAILURE 01/10/[address] active 9 ISCHEMIC CARDIOMYOPATHY 01/10/[address] active 10 AIRCRAFT SEAT UPHOLSTERER (CURRENT) USE OF ANTITHROMBOTICS/A NTIPLATELETS 01/10/[address] active 11 CHCF (CURRENT) USE OF ASPIRIN 01/10/[address] active 12 MAJOR DEPRESSIVE DISORDER, RECURRENT, MILD 01/10/[address] active 13 MILD PROTEIN-CALORIE MALNUTRITION 01/10/2005/06/[address] completed 14 MORBID (SEVERE) OBESITY DUE TO EXCESS CALORIES 01/10/[address] active 15 MUSCLE WEAKNESS (GENERALIZED) 01/10/[address] active 16 NON-ST ELEVATION (NSTEMI) MYOCARDIAL INFARCTION 01/10/[address] active 17 OBSTRUCTIVE SLEEP APNEA (ADULT) (PEDIATRIC) 01/10/[address] active 18 OLD MYOCARDIAL INFARCTION 01/10/[address] active 19 PERSONAL HISTORY OF NICOTINE DEPENDENCE 01/10/[address] active 20 PREDIABETES 01/10/[address] active 21 PRESENCE OF AORTOCORONARY BYPASS GRAFT 01/10/[address] active 22 PRESENCE OF CORONARY ANGIOPLASTY IMPLANT AND GRAFT 01/10/[address] active 23 PRIMARY OSTEOARTHRITIS, LEFT SHOULDER 01/10/202017996935316 SNOMED CT active 24 PRIMARY OSTEOARTHRITIS, RIGHT SHOULDER 01/10/202017338308943 SNOMED CT active 25 UNSPECIFIED NONDISPLACED FRACTURE OF SEVENTH CERVICAL VERTEBRA, SUBSEQUENT ENCOUNTER FOR FRACTURE WITH ROUTINE HEALING 01/10/[address] active 26 UNSTABLE BURST FRACTURE OF FIRST LUMBAR VERTEBRA, SUBSEQUENT ENCOUNTER FOR FRACTURE WITH ROUTINE HEALING 01/10/[address] active 27 VERTEBROGENIC LOW BACK PAIN 01/10/[address] active Reason for Referral No Reasons for Referral Entered Social History Social History Observation Description Start Date End Date Code Code System Current Smoking Status Tobacco smoking consumption unknown 285329529 SNOMED CT Sex Assigned At Male 1960 [address]141-9 [facility] Gender Identity Vital Signs Code Code System Vitals Name Values and Units Timing Information 8462-4 [facility] Blood Pressure-Diastolic Value=75 Un its=mmHg 09/17/2023 8480-6 [facility] Blood Pressure-Systolic Tiaow=338 Un its=mmHg 09/17/2023 8867-4 [facility] Heart rate Value=93.0 Units=/min 63375-6 [facility] Pain Level Value=5.0 09/17/2023 9279-1 [facility] Respiratory Rate Value=18.0 Units=/m in 09/12/2023 91027-6 [facility] O2 % BldC Oximetry Value=97.0 Units= % 09/12/2023 95560-0 [facility] Weight Abbxa=148.4 Units=Lbs 8310-5 LOINC Body Temperature Value=98.1 Units= F 08/29/2023 8302-2 LOINC Height Value=72.0 Units=Inches 01/10/2023
--- OUTSIDE RECORDS SUMMARY | 2024-11-15 21:38 | XMS_ITS | Encounter Summary ---
Author Organization [facility] Address [address] [place] [address] Care Team Providers Care Catering Sales Manager Name Role Phone Marielle Alcocer M.D. Primary Care Pro vider Reason for Visit * Reason Onset Date Comments Med Refill 10/06/2024 Encounter Details Date Type Department Care Team (Late st Contact Info) Description 10/06/2024 Refill Department of Family Medicine, [facility], in [address] [phone] Marielle Alcocer M.D. [address] [place] [phone] Med Refill Social History Tobacco Use Types Packs/Day Years Used Date Smoking Tobacco: Former Cigarettes 0.5 32.8 0 06/22/1995 - 12/14/2022 Passive Smoke Exposure: Never Smokeless Tobacco: Never Comments:11/2022 - Plans to s lenny quit. Alcohol Use Standard Drinks/Week Comments Not Currently 0 (1 standard drink = 0.6 oz pure alcohol) daily before hospital stay (01/02/2023) [facility] Utilities Answer Date Recorded In the past 12 months has [employer], gas, oil, or water company threatened to [...] Sex Assigned at Male 05/17/2021 7:04 AM CLAIM PROCESSING SPECIALIST Legal Sex Male 11:46 PM CLAIM PROCESSING SPECIALIST Gender Identity Male 05/17/2021 7:04 AM CLAIM PROCESSING SPECIALIST Sexual Orientation Straight 05/17/2021 7: 04 AM CLAIM PROCESSING SPECIALIST documented as of this encounter Plan of Treatment Upcoming Encounters Date Type Department Care Team (Late st Contact Info) Description 12/09/2024 9:20 AM CDT Office Visit Department of Family Medicine, [facility], in [address] [phone] Marielle Alcocer M.D. [address] [place] [phone] Scheduled Procedures Name Priority Associated Diagnoses Date/Ti [...] Total Score: 2 04/22/19 25 10:10 AM CLAIM PROCESSING SPECIALIST documented as of this encounter Care Teams Catering Sales Manager Relationship Specialty Start Date End Date Leung Marielel Solorio M.D. [address] [phone] PCP - General Family Medicine 09/10/23 documented as of this encounter
--- OUTSIDE RECORDS SUMMARY | 2024-11-15 21:38 | XMS_ITS | Encounter Summary ---
Author Organization [facility] Address [address] [place] [address] Care Team Providers Care Poultry Process Worker Name Role Phone Marielle Alcocer M.D. Primary Care Pro vider Reason for Visit * Reason Comments Med Refill Encounter Details Date Type Department Care Team (Late st Contact Info) Description 09/06/2024 Refill Senior Services in [facility] [address] [place] [address] Marielle King, BRENT, C.N.P., D.N.P. [address] [place] [phone] Med Refill Social History Tobacco Use Types Packs/Day Years Used Date Smoking Tobacco: Former Cigarettes 0.5 32.8 0 06/22/1995 - 12/14/2022 Passive Smoke Exposure: Never Smokeless Tobacco: Never Comments:11/2022 - Plans to s lenny quit. Alcohol Use Standard Drinks/Week Comments Not Currently 0 (1 standard drink = 0.6 oz pure alcohol) daily before hospital stay (01/02/2023) [facility] Utilities Answer Date Recorded In the past 12 months has [employer], gas, oil, or water company threatened [...] your living situation today? I have a [facility] place to live 06/15/2024 Education Answer Date Recorded What is the highest level of school you have completed or the highest degree you have received? Bachelor's degree (e.g., BA, AB, BS) 12/02/2018 Sex and Gender Information Value Date Recorded Sex Assigned at Male 05/17/2021 7:04 AM EXCEL EXPERT Legal Sex Male 11:46 PM EXCEL EXPERT Gender Identity Male 05/17/2021 7:04 AM EXCEL EXPERT Sexual Orientation Straight 05/17/2021 7: 04 AM EXCEL EXPERT documented as of this encounter Plan of Treatment Upcoming Encounters Date Type Department Care Team (Late st Contact Info) Description 12/09/2024 9:20 AM CDT Office Visit Department of Family Medicine, [facility] [place] [facility], in [address] [phone] Marielle Alcocer M.D. [address] [place] [phone] Scheduled Procedures Name Priority Associated Diagnoses [...] Total Score: 2 04/22/19 25 10:10 AM EXCEL EXPERT documented as of this encounter Care Teams Poultry Process Worker Relationship Specialty Start Date End Date Marielle Alcocer M.D. [address] [phone] PCP - General Family Medicine 09/10/23 documented as of this encounter
--- OUTSIDE RECORDS SUMMARY | 2024-11-15 21:38 | XMS_ITS | Encounter Summary ---
Author Organization [facility] Address [address] [place] [address] Care Team Providers Care Interpersonal Communications Professor Name Role Phone Marielle Alcocer M.D. Primary Care Pro vider Encounter Details Date Type Department Care Team (Late st Contact Info) Description 09/30/2024 Clinical Communication Department of Orthopedic Surgery in [place], [place] [address] [place] [address] Helen Felipe, LEyalPEyalN. [address] [place] [address] Social History Tobacco Use Types Packs/Day Years Used Date Smoking Tobacco: Former Cigarettes 0.5 32.8 0 06/22/1995 - 12/14/2022 Passive Smoke Exposure: Never Smokeless Tobacco: Never Comments:11/2022 - Plans to s lenny quit. Alcohol Use Standard Drinks/Week Comments Not Currently 0 (1 standard drink = 0.6 oz pure alcohol) daily before hospital stay (01/02/2023) [facility] Utilities Answer Date Recorded In the past 12 months has [facility] [employer], gas, oil, or water [employer] threatened to shut off services in your [...] Sex Assigned at Male 05/17/2021 7:04 AM SALES SUPERINTENDENT Legal Sex Male 11:46 PM SALES SUPERINTENDENT Gender Identity Male 05/17/2021 7:04 AM SALES SUPERINTENDENT Sexual Orientation Straight 05/17/2021 7: 04 AM SALES SUPERINTENDENT documented as of this encounter Plan of Treatment Upcoming Encounters Date Type Department Care Team (Late st Contact Info) Description 12/09/2024 9:20 AM CDT Office Visit Department of Family Medicine, [facility], in [address] [phone] Marielle Alcocer M.D. [id number] [phone] Scheduled Procedures Name Priority Associated Diagnoses Date/Ti [...] Total Score: 2 04/22/19 25 10:10 AM SALES SUPERINTENDENT documented as of this encounter Care Teams Interpersonal Communications Professor Relationship Specialty Start Date End Date Marielle Alcocer M.D. [id number] [phone] PCP - General Family Medicine 09/10/23 documented as of this encounter
--- OUTSIDE RECORDS SUMMARY | 2024-11-15 21:38 | XMS_ITS | Clinical Summary ---
Author Organization [facility] Address [address] [place] [address] Care Team Providers Care Meals On Wheels Driver Name Role Phone Marielle Alcocer M.D. Primary Care Pro vider Source Comments Patient records contain information from all sites at [facility]. For routine questions regarding patient records, call [phone] during business hours, M-F 8:00 AM - 5:00 PM Central Time. Record requests for emergency care only can be directed to [phone] at any time.[facility] Allergies No known active allergies Medications * This document contains information received from the source organization and may not represent a complete record from that organization. nitroglycerin (NITROSTAT) 0.[address] 1 tablet (0.4 mg total) under the tongue every 5 (five) minutes as needed for chest pain for up to 2 doses. 25 tablet 11 3 Active lidocaine (Lidoderm) 5 % adhesive patch,medicated Place 1 patch on the skin daily as needed. Apply to back. Leave on for up to 12 hours. Must remain patch free for 12 hours. 7 patch 3 Active nystatin (NYSTOP) 100,000 unit/gram powder Apply 1 Application topically 2 (two) times a day. Apply to groin folds. 15 g 3 Active polycarbophil (FIBERCON) 625 mg tabletIndicatio ns:Change In Bowel Habit Take 1 tablet (625 mg total) by mouth 3 (three) times a day. Indication: Bowel regularity 90 tablet 3 4 Active multivitamin-mi djjdro-AI-trsbd jaclyn-lutein (Centrum Silver) 0.4 mg-300 mcg- 250 mcg tablet Take 1 tablet by mouth daily. Take 1 tablet by mouth daily. 90 tablet 3 4 Active sacubitriL-vals jeffrey (Entresto) 49-51 mg per tablet Take 1 tablet by mouth 2 (two) times a day. 180 tablet 3 4 025 Active sennosides-docu sate sodium (Senokot-S) 8.6-50 mg per tablet Take 1-2 tablets by mouth 2 (two) times a day as needed for constipation. 50 tablet 2 05/11/2024 4:13 PM DAMAGE ASSESSOR 5 Active acetaminophen (TylenoL) 500 mg tablet Take 2 tablets (1,000 mg total) by mouth 3 (three) times a day as needed for pain. While awake. 100 tablet 2 05/11/2024 4:13 PM DAMAGE ASSESSOR 5 Active pregabalin (Lyrica) 100 mg capsule Take 1 capsule (100 mg total) by mouth 3 (three) times a day. 270 capsule 3 5 026 Active ezetimibe (Zetia) 10 mg tablet Take 1 tablet (10 mg total) by mouth daily. 90 tablet 3 5 Active metoprolol succinate (Toprol XL) 50 mg 24 hr tablet Take 1 tablet (50 mg total) by mouth daily. Do not crush or chew. 90 tablet 3 5 Active furosemide (Lasix) 20 mg tabletIndicatio ns:Cardiomyopat hy Ischemic Take 1 tablet (20 mg total) by mouth daily. 90 tablet 3 5 Active traMADoL (Ultram) 50 mg tabletIndicatio ns:Prolonged Acute Pain/Traumatic Injury Take 1-2 tablets (50-100 mg total) by mouth every 6 (six) hours as needed for acute surgical pain. 40 tablet 5 Active HYDROmorphone (Dilaudid) 2 mg tabletIndicatio ns:Prolonged Acute Pain/Traumatic Injury Take 1 tablet (2 mg total) by mouth every 6 (six) hours Indication: Prolonged Acute Pain/Traumatic Injury. 20 tablet 5 Active rosuvastatin (Crestor) 40 mg tabletIndicatio ns:Hyperlipidem ia Take 1 tablet (40 mg total) by mouth at bedtime. 90 tablet 3 5 Active finasteride (Proscar) 5 mg tabletIndicatio ns:Nocturia Take 1 tablet (5 mg total) by mouth daily. Indication: BPH with nocturia 90 tablet 3 5 Active dapagliflozin propanediol (Farxiga) 10 mg tabletIndicatio ns:Cardiomyopat hy Ischemic Take 1 tablet (10 mg total) by mouth daily. 90 tablet 5 026 Active venlafaxine XR (Effexor-XR) 37.5 mg 24 hr capsule Take 1 capsule (37.5 mg total) by mouth daily with morning meal. 90 capsule 5 Active clopidogreL (Plavix) 75 mg tablet Take 1 tablet (75 mg total) by mouth daily. Lifelong for CAD 90 tablet 3 5 Active spironolactone (Aldactone) 25 mg tabletIndicatio ns:Chronic Systolic (Congestive) Heart Failure (HCC) Take 1 tablet (25 mg total) by mouth daily. 90 tablet 3 5 Active naltrexone (Depade) 50 mg tablet Take 1 tablet (50 mg total) by mouth daily. 90 tablet 5 Active spironolactone (ALDACTONE) 25 mg tabletIndicatio ns:Chronic Systolic (Congestive) Heart Failure (HCC) Take 1 tablet (25 mg total) by mouth daily. 90 tablet 3 4 025 Discontin ued(Reord er) naltrexone (Depade) 50 mg tablet Take 1 tablet (50 mg total) by mouth daily. 90 tablet 4 025 Discontin ued(Reord er) Active Problems Patient Care Coordination No te [...] 03/28/2024 Assessment & Plan (05/09/2024 4:03 PM DAMAGE ASSESSOR): Continue treatment for left total knee arthroplasty [...] 2024. Assessment & Plan (04/29/2023 9:32 AM DAMAGE ASSESSOR): Appointment with family practice on 06/10/[address] a referral was ortho to see if we can get him in sooner for injection and/or evaluation for knee replacement. Assessment & Plan (04/03/2023 5:00 PM DAMAGE ASSESSOR): Complaining of left knee pain. Will obtain x-ray. Refer to family practice for another knee injection Diarrhea 02/13/2023 Overview (02/13/2023): Derrick has been having loose stool since admission to [facility] on 01/09/2023. He has been tested for [...] fracture. GI Pathogen Panel, PCR, Feces Order: [id number] Status: Final result Visible to patient: Yes [...] Negative Assessment & Plan (04/29/2023 9:33 AM DAMAGE ASSESSOR): Still waiting on results of colonoscopy. At this point there are no signs of a cause for his diarrhea. Still waiting on culture. Recommend BRAT diet to try to identify triggers in his diet for diarrhea. Assessment & Plan (04/03/2023 3:23 PM DAMAGE ASSESSOR): Last stool study did not result the ordered calprotectin. Fat was note elevated. Will get updated stool study with calprotectin and stool electrolytes. Assessment & Plan (02/13/2023 8:34 PM DAMAGE ASSESSOR): Discussed this patient with Dr. Chatterjee, as [...] fecal fat. Placed the following orders at [facility] - D/C Carvedilol and start Metoprolol Succinate 25 mg daily Order placed to check Fecal calprotectin and Fecal Fat No end date on nanoflakes Pain Low Back Vertebrogenic 01/03/2023 Overview (02/08/2023): Encounter opened in error Assessment & Plan (02/08/2023 8:54 AM DAMAGE ASSESSOR): Encounter opened in error Pain Neck 01/02/2023 Diffuse Idiopathic Skeletal Hyperostosis 023 Pain Chest 12/07/2022 Apnea Sleep Obstructive 09/02/2022 Assessment & Plan (05/09/2024 4:05 PM DAMAGE ASSESSOR): - CPAP if available Smoking Tobacco Use Personal History 06/13/2021 Overview (06/13/2021): Quit smoking with GA in 05/2021 Therapy Longterm Antiplatelet 06/05/2021 Assessment & Plan (05/09/2024 4:05 PM DAMAGE ASSESSOR): Resume Plavix postoperatively Coronary Stent Status Post 05/30/2021 Overview (04/03/2023): 05/27/2021: LEOBARDO to RCA 12/08/2022: PCI to LAD and first diagonal Bypass Coronary Artery Graft Status Post 022 Overview (05/30/2021): 05/30/2021 CABG x1 MARK to LAD Chronic Systolic (Congestive) Heart Failure 05/21 Assessment & Plan (05/09/2024 4:05 PM DAMAGE ASSESSOR): History of heart failure- HFrEF - hold [...] future. Assessment & Plan (04/03/2023 4:59 PM DAMAGE ASSESSOR): Derrick has been eating double meals lately. He has gained weight, 3 lb this week. Derrick states that he has lost a 100 lb in the past. He knows how to do this. I encouraged him to take action. Hyperlipidemia 12/02/2018 Assessment & Plan (05/09/2024 4:08 PM DAMAGE ASSESSOR): Hold statin therapy Assessment & Plan (04/03/2023 3:25 PM DAMAGE ASSESSOR): Was noted that prior rosuvastatin order had a stop date associated with it. Have cleared that to have stop date removal as rosuvastatin is planned long-term. PreDiabetes 05/04/2017 Assessment & Plan (05/09/2024 4:07 PM DAMAGE ASSESSOR): Hold Farvioleta Primary Osteoarthritis Shoulder Bilateral 2016 Moderate Or Severe Use Disor juan francisco (Dependence) Alcohol Remission 04/18/2016 Assessment & Plan (05/09/2024 4:07 PM DAMAGE ASSESSOR): Hold naltrexone Hypertensive Heart Disease With Heart Failure Overview (08/11/2023): Treated with metoprolol, spironolactone, Lasix, Entresto 08/11/2023: Blood pressure ranges: 118/82 to 125/92 Assessment & Plan (05/09/2024 4:10 PM DAMAGE ASSESSOR): hold Entresto, metoprolol, Lasix, Aldactone - consider restarting if patient is hypertensive postoperatively -EF 50% Assessment & Plan (04/29/2023 9:31 AM DAMAGE ASSESSOR): Spironolactone was given a stop date, this was discontinued. Spironolactone should not have a stop date. Assessment & Plan (03/20/2023 4:42 PM DAMAGE ASSESSOR): Obtain BMP to monitor potassium levels while on diuretic and spironolactone Depression Major Recurrent Mild 11/22/2014 Overview (08/11/2023): Maintained on Effexor. 08/04/2023 PHQ-9:3 Assessment & Plan (05/09/2024 4:04 PM DAMAGE ASSESSOR): Resume Effexor Assessment & Plan (08/11/2023 12:26 PM CDT): No GDR recommended at this time Assessment & Plan (08/04/2023 12:26 PM CDT): Pharmacy review recommends GDR. Will reduce venlafaxine Assessment & Plan (03/20/2023 4:43 PM DAMAGE ASSESSOR): Elias Warner has reached out to me with concern of depression, anxiety. She is worried that we will discharge him prematurely. Denies any need for antidepressant or antianxiety at this time. Resolved Problems Problem Noted Date Diagnosed Date Resolved Date Intermediate Stay Certification Exam 03/20/2023 12/24/2023 Overview (08/11/2023): Full code Heart healthy diet Average intake at meals 76-100% Continent of bladder and bowel Independent with ambulation No falls in the last 2 months 08/04/2023 BIMS score: 15 PHQ-9 score: 3 Assessment & Plan (08/25/2023 4:13 PM CDT): Medication reconciliation completed. Recertify. Derrick is preparing to move to an apartment in [place]. He is going on a tour tomorrow. Once he moves, he would like to pursue Cardiac rehab and establish care in the local area. Assessment & Plan (07/06/2023 4:16 PM CDT): Patient is appropriate long term resident at this time. He was working with nursing home social worker to identify places to discharge to when timing appropriate. He notes a few places are 62 and older establishments and he is soon going to turn 63, allowing him to apply for those locations. He is comfortable with either [place] or [place] locations. Recertification paperwork signed following our visit, this included review of medications and orders. Assessment & Plan (04/29/2023 9:30 AM DAMAGE ASSESSOR): Medication reconciliation completed. Recertify. Assessment & Plan (04/03/2023 3:26 PM DAMAGE ASSESSOR): Patient is appropriate rehab resident. Recertification paperwork signed following our visit this included review of medications and orders. Assessment & Plan (03/20/2023 4:44 PM DAMAGE ASSESSOR): Medication reconciliation completed. Recertify. Pressure Injury (Ulcer) Of O ther Site Unstageable (HCC) [L89.890 (ICD-10-CM)] 01/12/2023 04/22/2024 Overview (01/19/2023): Bilateral axilla pressure injuries from medical resident. Currently treated with silverstat, cover with Mepilex. Change daily. Assessment & Plan (04/03/2023 3:26 PM DAMAGE ASSESSOR): Axillary site on right continues to improve. [...] time. Assessment & Plan (04/03/2023 3:25 PM DAMAGE ASSESSOR): Had with Neurosurgery 03/12 and he has [...] (05/28/2021): Added automatically from request for surgery [id number] Injury Nose Superficial Initial 05/21/2021 06/13/2021 Overview (05/21/2021): Added automatically from request for surgery [id number] Laceration Nasal Initial 05/21/2021 Laceration Lip Initial 05/21/202106/13 Depression Personal History 04/18/2016 12/02/2018 Overview (12/02/2018): On Effexor in the past for single episode around 2013, likely associated with alcohol Abuse Tobacco Smoking 04/18/20162021 Arthroplasty Total Hip Repla cement Status Post Left 11/08/2014 12/02/2018 Encounters Date Type Department Care Team Description 11/06/2024 Refill Department of Family Medicine, [facility], in [address] [phone] Marielle Alcocer M.D. Med Refill 10/18/2024 Refill Department of Family Medicine, [facility], in [address] [phone] Marielle Alcocer M.D. Med Refill 10/06/2024 Refill Department of [facility], [facility], [address] [phone] Marielle Alcocer M.D. Med Refill 10/05/2024 Clinical Communication Department of [facility], [facility], in [address] [phone] Marielle Alcocer M.D. PandaDoc Form ([employer] dental clearance + OV) 09/30/2024 Clinical Communication Department of Orthopedic Surgery [address] [phone] Helen Felipe, L.P.N. 09/13/2024 Clinical Communication Pharmacy Prior Auth RO [phone] Elaine Peres Rx PA not Needed (Farxiga 10 mg ) 09/07/2024 Refill Department of [facility], [facility], in [address] [phone] Marielle Alcocer M.D. Med Refill 09/06/2024 Refill [facility] in [address] [place] [phone] Marielle King APRN C.N.P., D.N.P. Med Refill 09/05/2024 Refill Department of Family Medicine, [facility], in [address] [place] [phone] Marielle Alcocer M.D. Med Refill 09/05/2024 Refill [facility] in [address] [phone] Marielle King APRN C.N.P., D.N.P. Med Refill 09/03/2024 Refill [facility] in [address] [phone] Marielle King APRN C.N.P., D.N.P. Med Refill 08/31/2024 Refill [facility] in [address] [phone] Marielle King APRN, C.N.P., D.N.P. Med Refill 08/24/2024 Clinical Communication Department of Orthopedic Surgery in [address] [phone] Sergio Montano M.D. Reschedule 08/24/2024 Refill Department of Family Medicine, [facility], in [address] [phone] Marielle Alcocer M.D. Med Refill from Last 3 Months Immunizations Immunization Administration Dates Next Due HepB Adult (HEPLISAV-B) 02/20/2022,11/22/2021, Influenza Split 04/12/2016 MMR 11/22/2021,10/08/2021 PCV20 07/01/2023 PPSV23 12/02/2018 Pneumococcal Conjugate(PCV), Unspecified 09/02/2022(Deferred: Patient decision) RZV (SHINGRIX) 09/02/2022(Deferred: Patient decision),05/01/2021,12/02/2018(Deferre d: Not available from electric meter inspector) SARS-COV-2 (COVID-19) - MODE RNA (12 YEARS [...] sherman Arthritis Father sherman Heart failure Father sherman Hypertension Father sherman Sleep apnea Father sherman Diabetes Maternal Grandfather ewbridgett Depression Mother sven Hypertension Mother sven Obesity Mother sven Stroke Mother sven 03/14 Alcohol abuse Mother's Brother rachell garcia Lung cancer Mother's Brother rachell jose Alcohol abuse Sister tabatha Depression Sister tabtaha Obesity Sister tabatha Relation Name Status Comments [...] pure alcohol) daily before hospital stay (01/02/2023) [facility] Utilities Answer Date Recorded In the past 12 months has e [email or web address], gas, oil, or water [employer] threatened to shut off services in your [...] your living situation today? I have a [facility] place to live 06/15/2024 Education Answer Date Recorded What is the highest level of school you have completed or the highest degree you have received? Bachelor's degree (e.g., BA, AB, BS) 12/02/2018 Sex and Gender Information Value Date Recorded Sex Assigned at Male 05/17/2021 7:04 AM DAMAGE ASSESSOR Legal Sex Male 11:46 PM DAMAGE ASSESSOR Gender Identity Male 05/17/2021 7:04 AM DAMAGE ASSESSOR Sexual Orientation Straight 05/17/2021 7: 04 AM DAMAGE ASSESSOR Last Filed Vital Signs Vital Sign Reading Time Taken Comments Blood Pressure 96/89 2024 11:04 AM CDT Pulse 118 2024 11:04 AM CDT Temperature 35.9 C (96.6 F) 05/23/2024 7:16 PM DAMAGE ASSESSOR Respiratory Rate 19 05/23/2024 9:00 PM DAMAGE ASSESSOR Oxygen Saturation 95% 2024 11:04 AM CDT Inhaled Oxygen Concentration - - Weight 134 kg (294 lb 5 oz) 2024 11:04 AM CDT Height 181 cm (5' 11.26) 05/09/2024 12:43 PM CS T Body Mass Index 40.75 05/09/2024 12:43 PM DAMAGE ASSESSOR Plan of Treatment Upcoming Encounters Date Type Department Care Team (Late st Contact Info) Description 12/09/2024 9:20 AM CDT Office Visit Department of Family Medicine, [facility], in [address] [phone] Marielle Alcocer M.D. [address] [place] [phone] Scheduled Procedures Name Priority Associated Diagnoses Date/Ti [...] Lopez R.N. Medical Devices Implanted Type Area Bench Assembler Electrical Device Identifier Shelf Expiration Date Model / Serial / Lot Stnt Xnc De Rx 4.00x38 - [id number] Implanted:Qty : 1 on 05/27/2021 by Tong Rizzo M.D., Ph.D. at [facility] Cardiac Stent N/A: Coronary Cummings 06/13/2022 [id number] / / [id number] Description:RCA Stnt Sae De Rx 3.0x38 - [id number] Implanted:Qty : 1 on 12/08/2022 by Sage Curtis M.D. at [facility] Cardiac Stent Medtronic 09/03/2025 [id number] / / [id number] Clp Hrzn Ti 24 Pauly Frederick Guero - [id number] Implanted:Qty : 1 on 05/30/2021 by Dia Schmitt M.D., M.P.H. at [facility] Hardware e.g. pins/screw s/rods N/A: Chest [employer] [id number] / / Clp Hrzn Ti 24 Clp Sm Red - [id number] Implanted:Qty : 1 on 05/30/2021 by Dia Schmitt M.D., M.P.H. at [facility] Hardware e.g. pins/screw s/rods N/A: Chest [employer] [id number] / / Clp Hrzn Ti 24 Clp Sm Red - [id number] Implanted:Qty : 1 on 05/30/2021 by Dia Schmitt M.D., M.P.H. at [facility] Hardware e.g. pins/screw s/rods N/A: Chest Teleflex [employer] [id number] / / Clp Hrzn Ti 24 Clp Red - [id number] Implanted:Qty : 1 on 05/30/2021 by Dia Schmitt M.D., M.P.H. at [facility] Hardware e.g. pins/screw s/rods N/A: [employer] [id number] 02/24/2026 [id number] / / [id number] Conversions - Default Historical Implant Device Implanted:05/2014 (Quantity not on file) Hip Implant Other/Legacy - See Implant Description Description:Body Location - Other. right hip left hip. Device Status Text - Hip Imp. Pat Trt Sym 39x11 - Sna - [id number] Implanted:Qty : 1 on 05/09/2024 by Sergio Montano M.D. at [facility] Knee Implant Left: Knee Mae 01/24/2029 [id number] / NA / [id number] Tib Trt Ps X3 Sz7 11 - Sna - [id number] Implanted:Qty : 1 on 05/09/2024 by Sergio Montano M.D. at [facility] Knee Implant Left: Knee Dillard 12/05/2028 [id number]-G-[id number] 11-E / NA / [id number] Bsplt Tib Trt Sz7 56x80 - Sna - [id number] Implanted:Qty : 1 on 05/09/2024 by Sergio Montano M.D. at [facility] Knee Implant Left: Knee Dillard 02/20/2029 5536-B-7 00 / NA / [id number] Kn Fem Trt Lt Pors Sz-6 - Sna - [id number] Implanted:Qty : 1 on 05/09/2024 by Sergio Montano M.D. at [facility] Knee Implant Left: Knee Mae 03/03/2029 5516-F-6 01 / NA / [id number] Procedures Procedure Name Priority Date/Time Associated Diagnosis Comments LIPID PANEL, S Routine 2024 10:40 AM CDT [facility] [place] [facility] [place] Coronary Artery Without Angina Pectoris BASIC METABOLIC PANEL, S/P Routine 2024 10:40 AM CDT Atherosclerotic [facility] [place] [facility] [place] Coronary Artery Without Angina Pectoris COLONOSCOPY Routine 04/22/2023 10:43 AM DAMAGE ASSESSOR Diarrhea from Last 3 Months or Most Recently Relevant to Health Maintenance Results * Lipid Panel (2024 10:40 AM CDT) Triglycerides 139 mg/dL 2024 11:02 AM CDT CNNJ Comment: ----REFERENCE VALUE---- Normal: <150 mg/dL Borderline [...] 10:40 AM CDT 2024 10:43 AM CDT Marielle Solorio M.D. LAB BLOOD ADD-ON Final Result [facility] [address] [place] [address], [facility] in [address] [address] * (ABNORMAL) Basic Metabolic Panel (2024 10:40 [...] Solorio M.D. LAB BLOOD ADD-ON Final Result [facility] [id number] [address], [facility] in [place] [id number] [place] [address] [address] [place] [address] from Last 3 Months or Most Recently Relevant to Health Maintenance Additional Health Concerns Active Problems Noted Date Diagnosed Date Autogenerated Problem 09/02/2024 Insurance [facility] Advance Directives For more information, please contact: [phone] Documents on File Type Date Recorded Patient Fire Supervisor Expl anation Advance Directives 07/25/2024 3:14 PM [...] Sister First Alternat e Health Care Agent [email or web address] Care Teams Meals On Wheels Driver Relationship Specialty Start Date End Date Marielle Alcocer M.D. [address] [place] [phone] PCP - General Family Medicine 09/10/23
--- OUTSIDE RECORDS SUMMARY | 2024-11-15 21:38 | XMS_ITS | Encounter Summary ---
Author Organization [facility] Address [address] [place] [address] Care Team Providers Care B2B Managed Service Sales Exec Name Role Phone Marielle Alcocer M.D. Primary Care Pro vider Reason for Visit * Reason Onset Date Comments Med Refill 11/06/2024 Encounter Details Date Type Department Care Team (Late st Contact Info) Description 11/06/2024 Refill Department of Family Medicine, [facility], in [address] [phone] Marielle Alcocer M.D. [address] [place] [phone] Med Refill Social History Tobacco Use Types Packs/Day Years Used Date Smoking Tobacco: Former Cigarettes 0.5 32.8 0 06/22/1995 - 12/14/2022 Passive Smoke Exposure: Never Smokeless Tobacco: Never Comments:11/2022 - Plans to s lenny quit. Alcohol Use Standard Drinks/Week Comments Not Currently 0 (1 standard drink = 0.6 oz pure alcohol) daily before hospital stay (01/02/2023) [facility] Utilities Answer Date Recorded In the past 12 months has [employer], gas, oil, or water company threatened to [...] your living situation today? I have a [facility] place to live 06/15/2024 Education Answer Date Recorded What is the highest level of school you have completed or the highest degree you have received? Bachelor's degree (e.g., BA, AB, BS) 12/02/2018 Sex and Gender Information Value Date Recorded Sex Assigned at Male 05/17/2021 7:04 AM FLOATER OPERATOR Legal Sex Male 11:46 PM FLOATER OPERATOR Gender Identity Male 05/17/2021 7:04 AM FLOATER OPERATOR Sexual Orientation Straight 05/17/2021 7: 04 AM FLOATER OPERATOR documented as of this encounter Plan of Treatment Upcoming Encounters Date Type Department Care Team (Late st Contact Info) Description 12/09/2024 9:20 AM CDT Office Visit Department of Family Medicine, [facility], in [address] [phone] Marielle Alcocer M.D. [address] [place] [phone] Scheduled Procedures Name Priority Associated Diagnoses Date/Ti [...] Total Score: 2 04/22/19 25 10:10 AM FLOATER OPERATOR documented as of this encounter Care Teams B2B Managed Service Sales Exec Relationship Specialty Start Date End Date Leung Marielle oSlorio M.D. [id number] [phone] PCP - General Family Medicine 09/10/23 documented as of this encounter
--- OUTSIDE RECORDS SUMMARY | 2024-11-15 21:38 | XMS_ITS | Clinical Summary ---
Author Organization [facility] Address [address] [place] [address] Care Team Providers Care Social Work Instructor Name Role Phone Hayden Landry Primary Care [...] on file Legal Sex Male 6:11 AM BATCH ATTENDANT Gender Identity Not on file Sexual Orientation [...] this topic Medical Devices Implanted Type Area Bed Setter Device Identifier Shelf Expiration Date Model / Serial / Lot Screw Sm Joint 6.5x30mm Canclls Bone - [id number] Implanted:Qty: 1 on 09/20/2014 at [facility] Ortho Imp.,Screw s & Plates Right: Hip [employer] 3648-2869 -1# / / [id number] Screw Sm Joint 6.5x30mm Canclls Bone - [id number] Implanted:Qty: 1 on 09/20/2014 at [facility] Ortho Imp.,Screw s & Plates Right: Hip [employer] 2020-8412 -1# / / [id number] Screw Sm Joint 6.5x25mm Canclls Bone - [id number] Implanted:Qty: 1 on 11/08/2014 by Luc Santiago MD at [facility] Ortho Imp.,Screw s & Plates Left: Hip [employer] 1056-9390 -1# / / [id number] Shell Hip Od64mm Tritanium Cluster Tritanium - [id number] Implanted:Qty: 1 on 09/20/2014 at [facility] Right: Hip [employer] 502-03-64 G# / / [id number] Liner Hip Id36mm Szg 0deg Trident X3 - [id number] Implanted:Qty: 1 on 09/20/2014 at [facility] Right: Hip [employer] 623-00-36 G# / / [id number] Plug Hip Trident - [id number] Implanted:Qty: 1 on 09/20/2014 at [facility] Right: Hip [employer] 8996-1920 -1# / / [id number] Stem Hip Sz6 132deg Accolade Ii - [id number] Implanted:Qty: 1 on 09/20/2014 at [facility] Right: Hip [employer] 4809-8160 # / / [id number] Head Hip Od36mm +7.5 Biolox Delta C-Taper Alumina Cer - [id number] Implanted:Qty: 1 on 09/20/2014 at [facility] Right: Hip [employer] 6570-0-73 6# / / [id number] Screw Sm Joint 6.5x35mm Canclls Bone - [id number] Implanted:Qty: 1 on 11/08/2014 by Luc Santiago MD at [facility] Left: Hip [employer] 8360-6527 -1# / / [id number] Liner Hip Id36mm Szg 0deg Trident X3 - [id number] Implanted:Qty: 1 on 11/08/2014 by Luc Santiago MD at [facility] Left: Hip [employer] 623-00-36 G# / / [id number] Screw Sm Joint 6.5x16mm Canclls Bone - [id number] Implanted:Qty: 1 on 11/08/2014 by Luc Santiago MD at [facility] Left: Hip [employer] 2246-9324 -1# / / [id number] Shell Hip Od64mm Tritanium Cluster Tritanium - [id number] Implanted:Qty: 1 on 11/08/2014 by Luc Santiago MD at [facility] Left: Hip [employer] 502-03-64 G# / / [id number] Stem Hip Sz6 132deg Accolade Ii - [id number] Implanted:Qty: 1 on 11/08/2014 by Luc Santiago MD at [facility] Left: Hip [employer] 2059-0496 # / / [id number] Head Hip Od36mm +7.5 Biolox Delta C-Taper Alumina Cer - [id number] Implanted:Qty: 1 on 11/08/2014 by Luc Santiago MD at [facility] Left: Hip [employer] 6570-0-73 6# / / [id number] Plug Hip Trident - [id number] Implanted:Qty: 1 on 11/08/2014 by Luc Santiago MD at [facility] Left: Hip [employer] 6897-6950 -1# / / [id number] Insurance [address] [place] [address] [facility] [address] [place] [address] Advance Directives Documents on File Type Date Recorded Patient Vp Biology Expl anation Healthcare Directive 09/20/2014 12:00 AM [...] 6:46 AM 09/20/2014 1:35 PM Care Teams Social Work Instructor Relationship Specialty Start Date End Date Hayden Landry PCP - General Internal Medicine 09/15/14
--- OUTSIDE RECORDS SUMMARY | 2024-11-15 21:38 | XMS_ITS | Encounter Summary ---
Author Organization [facility] Address [address] [place] [address] Care Team Providers Care Double End Tenon Operator Name Role Phone Marielle Alcocer M.D. Primary Care Pro vider Reason for Visit * Reason Onset Date Comments Rx PA not Needed 09/13/2024 Farxiga 10 mg Encounter Details Date Type Department Care Team (Latest Contact Info) Description 09/13/2024 Clinical Communication Pharmacy Prior Auth RO [phone] Elaine Peres Rx PA not Needed (Farxiga [...] pure alcohol) daily before hospital stay (01/02/2023) [facility] Utilities Answer Date Recorded In the past 12 months has [employer], gas, oil, or water [employer] threatened to shut off services in your [...] your living situation today? I have a [facility] place to live 06/15/2024 Education Answer Date Recorded What is the highest level of school you have completed or the highest degree you have received? Bachelor's degree (e.g., BA, AB, BS) 12/02/2018 Sex and Gender Information Value Date Recorded Sex Assigned at Male 05/17/2021 7:04 AM GLUE PLANT OPERATOR Legal Sex Male 11:46 PM GLUE PLANT OPERATOR Gender Identity Male 05/17/2021 7:04 AM GLUE PLANT OPERATOR Sexual Orientation Straight 05/17/2021 7: 04 AM GLUE PLANT OPERATOR documented as of this encounter Miscellaneous Notes * Telephone Encounter - Elaine Peres - 09/13/2024 8:50 AM CDT closed documented in this encounter Plan of Treatment Upcoming Encounters Date Type Department Care Team (Late st Contact Info) Description 12/09/2024 9:20 AM CDT Office Visit Department of Family Medicine, [facility], in [address] [phone] Marielle Alcocer M.D. [address] [place] [phone] Scheduled Procedures Name Priority Associated Diagnoses Date/Ti me ROBOTIC-ASSISTED KNEE TOTAL ARTHROPLASTY Primary Osteoarthritis Knee Right documented as of this encounter Goals Goal Patient Goal Type Associated Problems Recent Progress Patient-Stated? Author Increase physical activity Exercise On track(2021 5:16 PM CDT) No Cailsta Jorge R.N. Note: Derrick will slowly work [...] On track(2021 5:16 PM CDT) No Calista Jroge R.N. Note: Derrick will check his blood pressure and weights daily and record them. Autogenerated Goal Care Plan Autogenerated Problem No Fina Lopez R.N. documented as of this encounter Visit Diagnoses Not on filedocumented in this encounter Additional Health Concerns Active Problems Noted Date Diagnosed Date Autogenerated Problem 09/02/2024 Assessment Noted Time PHQ-9 Depression Total Score: 2 04/22/19 25 10:10 AM GLUE PLANT OPERATOR documented as of this encounter Care Teams Double End Tenon Operator Relationship Specialty Start Date End Date Marielle Alcocer M.D. [address] [phone] PCP - General Family Medicine 09/10/23 documented as of this encounter
--- OUTSIDE RECORDS SUMMARY | 2024-11-15 21:38 | XMS_ITS | Encounter Summary ---
Author Organization [facility] Address [address] [place] [address] Care Team Providers Care Tableau Administrator Name Role Phone Marielle Alcocer M.D. Primary Care Pro vider Reason for Visit * Reason Comments Med Refill Encounter Details Date Type Department Care Team (Late st Contact Info) Description 09/03/2024 Refill Senior Services in [facility] [address] [place] [address] Marielle King, BRENT, C.N.P., D.N.P. [address] [place] [phone] Med Refill Social History Tobacco Use Types [...] Recorded In the past 12 months has [employer], gas, oil, or water company threatened [...] your living situation today? I have a [facility] place to live 06/15/2024 Education Answer Date Recorded What is the highest level of school you have completed or the highest degree you have received? Bachelor's degree (e.g., BA, AB, BS) 12/02/2018 Sex and Gender Information Value Date Recorded Sex Assigned at Male 05/17/2021 7:04 AM TECHNICAL COORDINATOR Legal Sex Male 11:46 PM TECHNICAL COORDINATOR Gender Identity Male 05/17/2021 7:04 AM TECHNICAL COORDINATOR Sexual Orientation Straight 05/17/2021 7: 04 AM TECHNICAL COORDINATOR documented as of this encounter Plan of Treatment Upcoming Encounters Date Type Department Care Team (Late st Contact Info) Description 12/09/2024 9:20 AM CDT Office Visit Department of Family Medicine, [facility], in [address] [phone] Marielle Alcocer M.D. [address] [place] [phone] Scheduled Procedures Name Priority Associated Diagnoses [...] Total Score: 2 04/22/19 25 10:10 AM TECHNICAL COORDINATOR documented as of this encounter Care Teams Tableau Administrator Relationship Specialty Start Date End Date Marielle Alcocer M.D. [address] [phone] PCP - General Family Medicine 09/10/23 documented as of this encounter
--- OUTSIDE RECORDS SUMMARY | 2024-11-15 21:38 | XMS_ITS | Encounter Summary ---
Author Organization [facility] Address [address] [place] [address] Care Team Providers Care Plant Physiology Teacher Name Role Phone Marielle Alcocer M.D. Primary Care Pro vider Reason for Visit * Reason Comments Med Refill Encounter Details Date Type Department Care Team (Late st Contact Info) Description 09/05/2024 Refill Senior Services in [facility] [address] [place] [phone] Marielle King, BRENT, C.N.P., D.N.P. [address] [place] [phone] Med Refill Social History Tobacco Use Types Packs/Day Years Used Date Smoking Tobacco: Former Cigarettes 0.5 32.8 0 06/22/1995 - 12/14/2022 Passive Smoke Exposure: Never Smokeless Tobacco: Never Comments:11/2022 - Plans to s lenny quit. Alcohol Use Standard Drinks/Week Comments Not Currently 0 (1 standard drink = 0.6 oz pure alcohol) daily before hospital stay (01/02/2023) [facility] Utilities Answer Date Recorded In the past 12 months has [employer] electric, gas, oil, or water company threatened [...] your living situation today? I have a [facility] place to live 06/15/2024 Education Answer Date Recorded What is the highest level of school you have completed or the highest degree you have received? Bachelor's degree (e.g., BA, AB, BS) 12/02/2018 Sex and Gender Information Value Date Recorded Sex Assigned at Male 05/17/2021 7:04 AM CLINICAL DOCUMENTATION DEVELOPER Legal Sex Male 11:46 PM CLINICAL DOCUMENTATION DEVELOPER Gender Identity Male 05/17/2021 7:04 AM CLINICAL DOCUMENTATION DEVELOPER Sexual Orientation Straight 05/17/2021 7: 04 AM CLINICAL DOCUMENTATION DEVELOPER documented as of this encounter Plan of Treatment Upcoming Encounters Date Type Department Care Team (Late st Contact Info) Description 12/09/2024 9:20 AM CDT Office Visit Department of Family Medicine, [facility], in [place] [phone] Marielle Alcocer M.D. [address] [place] [phone] Scheduled Procedures Name Priority Associated Diagnoses [...] Total Score: 2 04/22/19 25 10:10 AM CLINICAL DOCUMENTATION DEVELOPER documented as of this encounter Care Teams Plant Physiology Teacher Relationship Specialty Start Date End Date Marielle Alcocer M.D. [address] [phone] PCP - General Family Medicine 09/10/23 documented as of this encounter
--- NOTE | 2024-11-15 21:47 | CRLHL7_ITS ---
For Patients: As a result of the Century Cures Act, medical imaging exams and procedure reports are released immediately into your electronic medical record. You may view this report before your referring provider. If you have questions, please contact your health care provider. INDICATION: Trauma, fall. TECHNIQUE: CT cervical spine without contrast. COMPARISON: 10/17/2024. FINDINGS: Vertebrae: Alignment is normal. There are no fractures or suspicious bony lesions. Discs and facet joints: There are diffuse degenerative changes in the disc spaces and facet joints. Extraspinal findings: Paraspinous soft tissues are unremarkable. IMPRESSION: 1. No acute fracture or traumatic subluxation of the cervical spine. 2. Multilevel degenerative spondylosis. Please note that all CT scans at this facility use dose modulation, iterative reconstruction, and/or weight-based dosing when appropriate to reduce radiation dose to as low as reasonably achievable. Dictated by Jude Mazariegos MD @ 11/15/2024 11:12:37 PM (Electronically Signed)
--- NOTE | 2024-11-15 21:48 | CRLHL7_ITS ---
For Patients: As a result of the Century Cures Act, medical imaging exams and procedure reports are released immediately into your electronic medical record. You may view this report before your referring provider. If you have questions, please contact your health care provider. INDICATION: Trauma, fall. TECHNIQUE: CT head without contrast. COMPARISON: 10/17/2024. FINDINGS: Left parafalcine subdural hemorrhage measuring 7 mm in maximum thickness. Adjacent parasagittal left frontal subarachnoid hemorrhage. No midline shift. Wiggins-white matter differentiation is maintained. Patchy white matter low attenuation changes, nonspecific but likely reflecting chronic small vessel ischemic disease. No hydrocephalus. Basilar cisterns are patent. Mucosal thickening in the left maxillary sinus. Mastoid air cells are clear. The visualized orbits are grossly unremarkable. No skull fractures. IMPRESSION: 1. Left parafalcine subdural hemorrhage measuring 7 mm in maximum thickness. 2. Adjacent parasagittal left frontal subarachnoid hemorrhage. 3. Findings were discussed with Dr. Brumfield by Dr. Mazariegos on 11/15/2024 at 11:06 PM. Please note that all CT scans at this facility use dose modulation, iterative reconstruction, and/or weight-based dosing when appropriate to reduce radiation dose to as low as reasonably achievable. Dictated by Jude Mazariegos MD @ 11/15/2024 11:10:10 PM (Electronically Signed)
--- OUTSIDE RECORDS SUMMARY | 2024-11-15 21:53 | XMS_ITS ---
Author Organization [facility] Care Team Providers Care Accounting Generalist Name Role Phone Shemar Chatterjee Unavailable Unavailable Allergies and adverse reactions No Known Allergies Care Team Name Role Address Phone Organization Dates Shemar Chatterjee PCP [facility] [address] [place], [address], [place] (Office): : [facility] 01/09/2023 - 09/17/2023 Immunizations Immunization Status Vaccine Details Vaccine Code CodeSystem Date Notes Hepatitis B completed hepatitis B vaccine, adult dosage 43 CVX created date: 01/08/2023 administer ed date: 02/20/2022 TB 2 Step Mantoux Skin Test completed tuberculin skin test; unspecified formulation lotNumber: [id number] expiry: 02/20/2026 Mfg: NDC Given 0.1 ml Left Forearm intradermally Step 1 of Multi-step 98 CVX created date: 01/23/2023 consent date: 01/23/2023 administer ed date: 01/23/2023 TB 2 Step Mantoux Skin Test completed tuberculin skin test; unspecified formulation lotNumber: [id number] expiry: 01/11/2023 Mfg: Par Pharmacetical Given 0.1 [...] completed Pneumococcal conjugate vaccine 20-valent (PCV20), polysaccharide [id number] conjugate, adjuvant, preservative free lotNumber: [id number] expiry: 08/20/2024 Mfg: PFIZER Given 0.5 ml Left Deltoid intramuscularly 216 CVX created date: 05/22/2023 consent date: 05/22/2023 administer ed date: 07/01/2023 Educated by Yanely TAI 08/01/22 on 05/14/2023 2nd Booster [facility] completed SARS-COV-2 (COVID-19) vaccine, mRNA, spike protein, LNP, preservative free, 30 mcg/0.3mL dose Mfg: Comirnaty-PFR Given 30.0 mcg 208 CVX created date: 01/08/2023 administer ed date: 07/11/2021 Covid Bivalent Booster(Pfizer) completed SARS-COV-2 (COVID-19) vaccine, mRNA, spike protein, LNP, bivalent, preservative free, 30 mcg/0.3 mL dose, anahi-sucrose formulation Mfg: Comirnaty-PFR Given 30.0 mcg 300 CVX created date: 01/08/2023 administer ed date: 01/16/2022 [employer] Covid [id number] Formula completed SARS-COV-2 (COVID-19) vaccine, mRNA, spike protein, LNP, preservative free, 50 mcg/0.5 mL dose lotNumber: [id number] expiry: 02/03/2023 Mfg: Moderna Given 0.5 ml [...] CodeSystem Concern Status 1 DIARRHEA, UNSPECIFIED 02/18/[address] active 2 ANKYLOSING HYPEROSTOSIS [FORESTIER], SITE UNSPECIFIED 01/10/[address] active 3 BODY MASS INDEX [BMI]40.0-44.9, ADULT 01/10/[address] active 4 CERVICALGIA 01/10/[address] active 5 CHEST PAIN, UNSPECIFIED 01/10/[address] active 6 CHRONIC SYSTOLIC (CONGESTIVE) HEART FAILURE 01/10/[address] active 7 HYPERLIPIDEMIA, UNSPECIFIED 01/10/[address] active 8 HYPERTENSIVE HEART DISEASE WITH HEART FAILURE 01/10/[address] active 9 ISCHEMIC CARDIOMYOPATHY 01/10/[address] active 10 IMPROVEMENT DIRECTOR (CURRENT) USE OF ANTITHROMBOTICS/A NTIPLATELETS 01/10/[address] active 11 FPC (CURRENT) USE OF ASPIRIN 01/10/[address] active 12 MAJOR DEPRESSIVE DISORDER, RECURRENT, MILD 01/10/[address] active 13 MILD PROTEIN-CALORIE MALNUTRITION 01/10/2005/06/[address] completed 14 MORBID (SEVERE) OBESITY DUE TO EXCESS CALORIES 01/10/[address] active 15 MUSCLE WEAKNESS (GENERALIZED) 01/10/[address] active 16 NON-ST ELEVATION (NSTEMI) MYOCARDIAL INFARCTION 01/10/[address] active 17 OBSTRUCTIVE SLEEP APNEA (ADULT) (PEDIATRIC) 01/10/[address] active 18 OLD MYOCARDIAL INFARCTION 01/10/[address] active 19 PERSONAL HISTORY OF NICOTINE DEPENDENCE 01/10/[address] active 20 PREDIABETES 01/10/[address] active 21 PRESENCE OF AORTOCORONARY BYPASS GRAFT 01/10/[address] active 22 PRESENCE OF CORONARY ANGIOPLASTY IMPLANT AND GRAFT 01/10/[address] active 23 PRIMARY OSTEOARTHRITIS, LEFT SHOULDER 01/10/202017583713002 SNOMED CT active 24 PRIMARY OSTEOARTHRITIS, RIGHT SHOULDER 01/10/202017905795878 SNOMED CT active 25 UNSPECIFIED NONDISPLACED FRACTURE OF SEVENTH CERVICAL VERTEBRA, SUBSEQUENT ENCOUNTER FOR FRACTURE WITH ROUTINE HEALING 01/10/[address] active 26 UNSTABLE BURST FRACTURE OF FIRST LUMBAR VERTEBRA, SUBSEQUENT ENCOUNTER FOR FRACTURE WITH ROUTINE HEALING 01/10/[address] active 27 VERTEBROGENIC LOW BACK PAIN 01/10/[address] active Reason for Referral No Reasons for Referral Entered Social History Social History Observation Description Start Date End Date Code Code System Current Smoking Status Tobacco smoking consumption unknown 526949177 SNOMED CT Sex Assigned At Male 1960 [address]-8 [facility] Gender Identity Vital Signs Code Code System Vitals Name Values and Units Timing Information 8462-4 [facility] Blood Pressure-Diastolic Value=75 Un its=mmHg 09/17/2023 8480-6 [facility] Blood Pressure-Systolic Lvnzo=010 Un its=mmHg 09/17/2023 8867-4 [facility] Heart rate Value=93.0 Units=/min 00774-2 [facility] Pain Level Value=5.0 09/17/2023 9279-1 [facility] Respiratory Rate Value=18.0 Units=/m in 09/12/2023 65633-1 [facility] O2 % BldC Oximetry Value=97.0 Units= % 09/12/2023 92811-8 [facility] Weight Mzqyx=399.4 Units=Lbs 8310-5 [facility] Body Temperature Value=98.1 Units= F 08/29/2023 8302-2 [facility] Height Value=72.0 Units=Inches 01/10/2023
[2024-11-15 22:20] LABS: Hematocrit 41.6 % (37.0-53.0); Hemoglobin* 13.7 gm/dL (13.5-17.5); Immature Granulocytes Abs Auto 0.07 K/uL (0.00-0.30); Immature Granulocytes Pct Auto 0.8 %; Mean Corpuscular HGB Conc 33 gm/dL (32-36); Mean Corpuscular Hemoglobin 34 pg (26-34); Mean Corpuscular Volume 102 fL (80-100); RDW Coefficient of Variation % 15.0 % (11.5-15.5); Red Blood Count 4.09 m/uL (4.30-5.90); White Blood Count* 8.33 K/uL (4.50-11.00)
--- NOTE | 2024-11-15 22:25 | ED.FALL ---
HPI - Fall General Date Seen: 11/15/24 Chief Complaint: Fall/Minor Trauma Stated Complaint: fall Time Seen by Provider: 11/15/24 21:46 Source: patient, EMS, RN notes reviewed and old records reviewed Mode of arrival: ambulatory Limitations: no limitations History of Present Illness HPI Narrative: Patient is a 64-year-old gentleman who presents here after a fall in his apartment, his downstairs neighbor called the ambulance, when he heard a thud, ambulance arrived found the patient supine and awake at the scene, they did question him any got the year and the president wrong, while here he tells me has been drinking alcohol, he complains of neck and back pain here. But tells me he has had previous fractures of his neck and back. He has also had previous falls, been in our ER before for falls. I believe he uses a lift device to get up and move around. I asked him how much he has been drinking, he tells me enough. Unsure exactly when he fell, but thinks it was around the same time his neighbor called. Denies any numbness tingling or weakness, does report that he is on Plavix. Knows person place and time, Fall from: standing Fall witnessed: no Place fall occurred: home Loss of consciousness: No Prolonged down time: no Symptoms prior to fall: none Context: tripped/slipped and alcohol use Location of injury: back Severity: moderate Associated symptoms (after fall): denies Related Data Home Medications ?Medication ?Instructions ?Recorded ?Confirmed aspirin 81 mg chewable tablet 1 tab PO DAILY 10/08/23 10/08/23 clopidogrel 75 mg tablet 75 mg PO DAILY 10/08/23 10/08/23 dapagliflozin propanediol 10 mg 10 mg PO DAILY 10/08/23 10/08/23 tablet (Farxiga) ezetimibe 10 mg tablet 10 mg PO DAILY 10/08/23 10/08/23 finasteride 5 mg tablet 5 mg PO DAILY 10/08/23 10/08/23 furosemide 20 mg tablet mg PO 10/08/23 10/08/23 metoprolol succinate 25 mg 25 mg PO DAILY 10/08/23 10/08/23 tablet,extended release 24 hr pregabalin 50 mg capsule 50 mg PO BID 10/08/23 10/08/23 sacubitril 97 mg-valsartan 103 mg 1 tab PO BID 10/08/23 10/08/23 tablet (Entresto) spironolactone 25 mg tablet 25 mg PO DAILY 10/08/23 10/08/23 venlafaxine 37.5 mg 37.5 mg PO DAILY 10/08/23 10/08/23 capsule,extended release 24 hr Allergies Allergy/AdvReac Type Severity Reaction Status Date / Time No Known Drug Allergies Allergy Verified 10/08/23 12:14 Review of Systems Status of ROS: Reports: 10 or more systems reviewed and unremarkable except as noted in History and below [facility] Social History Smoking Status: Unknown if ever smoked Do you use any of these nicotine containing products: None Second hand tobacco smoke exposure: No How often do you have a drink containing alcohol: 4 or more times a week How many standard drinks containing alcohol do you have on a typical day: 10 or more How often do you have six or more drinks on one occasion: Daily or almost daily AUDIT-C Alcohol total score: 12 Non-prescribed substance use: denies use service: No Exam Narrative: Exam Narrative: Patient comes to us in room 5, he is able the speak to me normally, I do not find any evidence of any trauma over his head, he is able lift his neck up off the bed, but does complain of some pain there. No tenderness around his clavicles are her shoulder, cranial nerves 3-12 are normal there is no blood around his ears, mouth opening is normal, chest is good air entry bilaterally with no wheezing crackles noted, heart sounds are normal. Abdomen is soft and obese, no guarding, there is some shifting dullness consistent with ascites, pelvis is stable to rocking, he is log-rolled on the left side, there is no tenderness to palpation over his neck, chin chest, thoracic, or lumbar spine, on percussion palpation. Moves all extremities independently well both his hips knees. Elbows and wrists. Smells of alcohol. Const: Vital Signs, click to edit/add: Vital Signs - 24 hr 11/15/24 21:37 11/15/24 21:49 11/15/24 21:50 Temperature 97.1 F L Pulse Rate 74 Pulse Rate [Pulse Oximeter] 79 64 Respiratory Rate 18 14 16 Blood Pressure 92/49 L Blood Pressure [Ri ght Upper Arm] 105/66 100/58 L Pulse Oximetry 93 98 Oxygen Delivery Me thod Room Air Room Air 11/15/24 21:52 11/15/24 22:00 11/15/24 22:01 Temperature Pulse Rate 78 76 75 Pulse Rate [Pulse Oximeter] Respiratory Rate 21 16 18 Blood Pressure 100/58 L 97/65 Blood Pressure [Ri ght Upper Arm] Pulse Oximetry 91 90 90 Oxygen Delivery Me thod 11/15/24 22:02 11/15/24 22:15 11/15/24 22:30 Temperature Pulse Rate 76 74 Pulse Rate [Pulse Oximeter] Respiratory Rate 19 15 18 Blood Pressure Blood Pressure [Ri ght Upper Arm] Pulse Oximetry 90 93 Oxygen Delivery Me thod 11/15/24 22:48 11/15/24 22:51 Temperature 97 F L Pulse Rate 78 Pulse Rate [Pulse Oximeter] Respiratory Rate 17 18 Blood Pressure 116/72 Blood Pressure [Ri ght Upper Arm] Pulse Oximetry 91 Oxygen Delivery Me thod Documenting provider has reviewed patient's vital signs: yes Course Reevaluation(s) Time of Reevaluation #1: 23:31 Reevaluation #1: Patient is complaining of a headache, his head CT looks like he has a cute parasagittal subdural, along with the subarachnoid hemorrhage. He is loaded with Keppra in, I have given him some Dilaudid head his bed is come up to 30?, his cervical spine CT did not show any evidence of acute fracture. I spoke to Dr. Mike Miller at [facility] [place], he accepted the patient in transfer. Vital Signs Vital signs: Initial Vital Signs Temperature 97.1 F L 11/15/24 21:37 Temperature Source Temporal Artery Scan 11/15/24 21:37 Pulse Rate 79 11/15/24 21:37 Respiratory Rate 18 11/15/24 21:37 Blood Pressure 105/66 11/15/24 21:37 Blood Pressure Mean 79 11/15/24 21:37 Blood Pressure Position Semi-Fowlers 11/15/24 21:37 Pulse Oximetry 93 11/15/24 21:37 Oxygen Delivery Method Room Air 11/15/24 21:37 Vital Signs Temperature 97.1 F L 11/15/24 21:37 Pulse Rate 79 11/15/24 21:37 Respiratory Rate 18 11/15/24 21:37 Blood Pressure 105/66 11/15/24 21:37 Pulse Oximetry 93 11/15/24 21:37 Oxygen Delivery Method Room Air 11/15/24 21:37 Temperature 97 F L 11/15/24 22:51 Pulse Rate 78 11/15/24 22:51 Respiratory Rate 18 11/15/24 22:51 Blood Pressure 116/72 11/15/24 22:51 Pulse Oximetry 91 11/15/24 22:51 Oxygen Delivery Method Room Air 11/15/24 21:50 Medications Administered Medications: Generic Name Dose Route Start Last Admin Trade Name Freq PRN Reason Stop Dose Admin Hydromorphone HCl 0.5 mg 11/15/24 22:50 11/15/24 22:59 Hydromorphone 0.5 Mg/0.5 Ml Inj IVP 11/15/24 22:51 0.5 mg ONCE ONE Administration Levetiracetam/Sodium Chloride 1,000 mg 11/15/24 23:21 11/15/24 23:30 Levetiracetam 1,000 Mg/100 Ml Infusion IVPB 11/15/24 23:22 1,000 mg ONCE ONE Administration Discontinued Medications Generic Name Dose Route Start Last Admin Trade Name Freq PRN Reason Stop Dose Admin Sodium Chloride 1,000 mls @ 1,000 mls/hr 11/15/24 22:00 11/15/24 22:56 0.9 % Sodium Chloride 1000 Ml IV 11/15/24 22:59 1,000 mls/hr .Q1H ILIA Administration MDM - Fall MDM Narrative Medical decision making narrative: Life-threatening differential diagnosis is considered include: Subarachnoid hemorrhage, subdural hemorrhage, epidural hemorrhage. Other differential diagnosis considered include concussion, closed head injury, or neck fracture. A chronic alcoholic would worry about a head bleed. With a history of a fall. Medical Records Attestation: I reviewed the patient's medical records. Lab Data Attestation: I reviewed the patient's lab results. Labs: Lab Results 11/15/24 11/15/24 Range/Units 22:15 22:30 WBC 8.33 (4.50-11.00) K/uL RBC 4.09 L (4.30-5.90) m/uL Hgb 13.7 (13.5-17.5) gm/dL Hct 41.6 (37.0-53.0) % MCV 102 H (80-100) fL MCH 34 (26-34) pg MCHC 33 (32-36) gm/dL RDW Coeff of Dwain 15.0 (11.5-15.5) % Plt Count 195 (140-440) K/uL Neut % (Auto) 76.8 H (42.0-72.0) % Lymph % (Auto) 12.7 L (20-44) % Branch % (Auto) 8.0 (0.0-11.0) % Eos % (Auto) 1.6 (0.0-7.0) % Baso % (Auto) 0.1 (0.0-3.0) % Neut # (Auto) 6.40 (1.7-7.0) K/uL Lymph # (Auto) 1.10 (0.90-2.90) K/uL Branch # (Auto) 0.70 (0.00-0.90) K/UL Eos # (Auto) 0.13 (0.00-0.50) K/uL Baso # (Auto) 0.01 (0.00-0.30) K/uL Abs Immat Gran (auto) 0.07 (0.00-0.30) K/uL Imm/Tot Granulo (auto) 0.8 % INR 0.91 (0.91-1.10) APTT 27 (23-33) Seconds Sodium 136 (135-149) mmol/L Potassium 4.3 (3.6-5.1) mmol/L Chloride 107 (96-114) mmol/L Carbon Dioxide 21 (20-32) mmol/L Anion Gap 8 (7-15) mEq/L BUN 31 H (7-30) mg/dL Creatinine 1.2 (0.5-1.5) mg/dL Estimated Creat Clear 69.16 Estimated GFR 68 ml/min Glucose 144 H (60-115) mg/dL Calcium 8.5 (8.4-10.6) mg/dL Urine Opiates Screen Negative (Negative) Ur Buprenorphine Scrn Negative (Negative) Ur Oxycodone Screen Negative (Negative) Urine Methadone Screen Negative (Negative) Ur Barbiturates Screen Negative (Negative) U Tricyclic Antidepress Negative (Negative) Ur Phencyclidine Scrn Negative (Negative) Ur Amphetamines Screen Negative (Negative) U Methamphetamines Scrn Negative (Negative) U Benzodiazepines Scrn Negative (Negative) Urine Cocaine Screen Negative (Negative) U Marijuana (THC) Screen POSITIVE A (Negative) Ur Drug Screen Comment See Note Ethyl Alcohol 0.19 H (0.01-0.03) % ECG Data Attestation: I personally reviewed and interpreted this ECG as follows: ECG interpretation date: 11/15/24 Prior ECG tracings: available for review Interpretation: EKG shows sinus rhythm with a mild first-degree block, low voltage, ventricular rate 71 QRS 82 QT 398 QTC 432 Impression: abnormal EKG with no acute changes. When compared to other EKG from 10/14/2024 unchanged Critical Care Time Critical Care Time Critical Care Time: Yes Attestation: The patient required my highest level preparedness to intervene emergently and I personally spent this critical care time directly and personally managing the patient. This critical care time included: Obtaining a history; Examining the patient; Pulse oximetry; Ordering and reviewing of studies; Arranging urgent treatment with development of a management plan; Evaluation of patients response to treatment; Frequent reassessment discussions with other providers. This critical care time was performed to assess and manage the high probability of imminent life-threatening deterioration that could result in multiorgan failure. It was exclusive of separate billable procedures and treating other patients and teaching time. Total Critical Care Time in Minutes: 60 Discharge Plan Discharge Clinical Impression: Acute subdural hematoma, Subarachnoid hemorrhage, Acute alcohol intoxication Patient Disposition: [facility] Condition: Guarded
[2024-11-15 22:30] LABS: Lymphocytes Absolute Auto 1.10 K/uL (0.90-2.90); Slide Review Reflex No
[2024-11-15 22:33] LABS: Chloride* 107 mmol/L (96-114); Potassium* 4.3 mmol/L (3.6-5.1); Sodium* 136 mmol/L (135-149)
[2024-11-15 22:36] LABS: Anion Gap 8 mEq/L (7-15); Blood Urea Nitrogen* 31 mg/dL (7-30); Carbon Dioxide* 21 mmol/L (20-32); Creatinine* 1.2 mg/dL (0.5-1.5); Est. Creatinine Clearance* 69.16; Estimated Glomerular Filt Rate 68 ml/min; Ethanol* 0.19 % (0.01-0.03)
[2024-11-15 22:37] LABS: Calcium* 8.5 mg/dL (8.4-10.6); Glucose* 144 mg/dL (60-115); INR 0.91 (0.91-1.10); Prothrombin Time 13.1 Seconds
[2024-11-15 22:42] LABS: Cannabinoid Screen Urine POSITIVE (Negative); Methamphetamines Screen Urine Negative (Negative); Tricyclic Antidepressant Urine Negative (Negative)
[2024-11-15] MEDS: LEVETIRACETAM 1,000 mg/100 ml INFUSION 1000 MG IVPB (23:30)
== END 2024-11-16 00:12 | disposition short-term general hospital (02) ==
PROVIDERS: Emergency Provider Family Medicine
DX: S06.6X0A Traumatic subarachnoid hemorrhage without loss of consciousness, initial encounter (principal); S06.5X0A Traumatic subdural hemorrhage without loss of consciousness, initial encounter; W10.9XXA Fall (on) (from) unspecified stairs and steps, initial encounter
CPT/HCPCS: 36415; 70450; 72125; 80048; 80306; 82077; 85025; 85610; 85730; 93005; 94761; 96365; 96375; 99285; 99291; J1171; J1953; J7030

== ENCOUNTER 2024-11-15 23:52 | Outpatient (CLI) | payer OTHER, SELFPAY | END 2024-11-15 23:53 | disposition home or self-care (01) | LOC: AMB 11-17 14:16 | PROVIDERS: Visit Provider Family Medicine | DX: S06.5XAA Traumatic subdural hemorrhage with loss of consciousness status unknown, initial encounter (principal) | CPT/HCPCS: 36415; 80048; 80306; 82077; 85025; 85610; 85730; A0425; A0433 ==